=== PATIENT | male | born 1965 | race Caucasian/White ===

== ENCOUNTER 2017-05-04 06:51 | Inpatient (IN) | payer BC ==
--- NOTE | 2017-04-22 12:25 | HP ---
PREOPERATIVE HISTORY AND PHYSICAL: DATE OF ADMISSION: 05/04/17 This patient is scheduled for AA admission by Dr. Chilel on 05/04/17. DATE OF PREOPERATIVE HISTORY AND PHYSICAL EXAMINATION: 04/21/17 ATTENDING SURGEON: Juan Chilel MD (dictated by Jose Antonio Fernández NP). CHIEF COMPLAINT: Morbid obesity. HISTORY OF PRESENT ILLNESS: The patient is a 52-year-old morbidly obese male with a body mass index of 43 and comorbidities of aggressive coronary artery disease with a history of myocardial infarction x2 as well as coronary artery stenting; type 2 diabetes; hypertension; hyperlipidemia; and sleep apnea requiring CPAP. He has been in the bariatric program since 2011 and was seen in 2013 for laparoscopic sleeve gastrectomy, but the surgery was delayed because he had an OH. Currently, he has completed all of the necessary preoperative evaluations and diagnostic testing as well as medically supervised weight loss at [facility] and he has been cleared by Dr. Phelps from cardiology to proceed with surgery. He has been deemed an appropriate candidate by Dr. Chilel for laparoscopic sleeve gastrectomy. Dr. Chilel discussed the nature of the surgical procedure, the expected results of surgery, the relevant risks, benefits, and alternatives and today I have reviewed the typical hospitalization as well as the postoperative care and recovery. The patient understands the need for compliance with stages of the postoperative bariatric diet, vitamin and mineral supplementation, exercise and followup appointments. The patient has had a chance to ask questions and stated that he understands the information and is satisfied with the answers given to his questions. He will sign surgical consent on the day of surgery. PAST MEDICAL HISTORY: Significant for coronary artery disease with a history of myocardial infarction x2, in 2012 and 2013. Multiple coronary artery stenting procedures both at [facility] and [facility] with the last one being September 2015, type 2 diabetes, hypertension, hypercholesterolemia, sleep apnea with CPAP. PAST SURGICAL HISTORY: Limited to minor plastic surgery on his nose many years ago after a dog bite and multiple percutaneous transluminal coronary angioplasties. MEDICATIONS: 1. Chlorthalidone 25 mg p.o. daily. 2. Atorvastatin 80 mg p.o. daily. 3. Amlodipine 10 mg p.o. daily. 4. Lisinopril 20 mg p.o. daily. 5. Metoprolol 25 mg p.o. b.i.d. 6. Aspirin [address] Chilel stated that the patient could continue the aspirin in the perioperative period. 7. Brilinta 90 mg p.o. b.i.d. and the patient will hold the Brilinta for 5 days preoperatively and take the last dose on 04/28/17. 8. Metformin 1000 mg p.o. b.i.d. and I have advised the patient to hold that for 24 hours preoperatively and to check with his primary care provider about adjusting the dose during the preop diet. 9. Benadryl 25 mg p.o. at bedtime as needed. 10. Multivitamin daily. 11. CPAP for sleep apnea every night. 12. Nitrostat 0.4 mg one sublingual every 5 minutes up to 3 doses p.r.n. chest pain. ALLERGIES: No known drug allergies. REVIEW OF SYSTEMS: Constitutional: Denies any symptoms. Respiratory: Denies any shortness of breath or orthopnea. Cardiovascular: Denies any chest pain, palpitations, syncopal episodes. Denies any history of deep vein thrombosis or pulmonary embolism. He has aggressive coronary artery disease; April 2016 underwent chemical nuclear stress test, which showed normal perfusion. He has been cleared by Dr. Phelps from Cardiology to proceed with surgery. Please see the attached cardiology note dated 01/01/17. GI: Denies any nausea, vomiting, chronic constipation, or diarrhea; abdominal ultrasound revealed hepatic steatosis, no gallstones, gallbladder thickening or ductal dilatation; upper endoscopy in 2013 revealed a small hiatal hernia and a positive CLOtest for which he was treated. Genitourinary: Denies any dysuria, hematuria, or history of kidney stones. Musculoskeletal: Denies any chronic joint pain or back pain. Neurologic: Denies any complaints or conditions. He does have a history of sleep apnea and is using CPAP every night; he is a type 2 diabetic and does not check fingersticks; he denies any bleeding tendencies and has never received a blood transfusion. Denies any previous anesthesia complications. SOCIAL HISTORY: He is a registered nurse, employed at the [employer]; he lives with his girlfriend of 19 years; he quit chewing tobacco in 2011 and quit smoking cigarettes over 13 years ago; he rarely drinks alcohol and denies the use of other substances. FAMILY HISTORY: Mother alive at age 70 with hypertension and osteoporosis; father with heart disease; the patient has 1 brother with a history of myocardial infarction with stenting; the patient's sister at age 32 status post myocardial infarction. No known anesthesia complications, bleeding tendencies, or clotting disorders in the family. PHYSICAL EXAMINATION GENERAL: The patient is a 52-year-old morbidly obese male, in no acute distress. VITAL SIGNS: Height 68 inches, weight 283 pounds, body mass index 43, blood pressure 124/80, pulse 80 and regular, respiratory rate 18, temperature 98.4 tympanic. SKIN: Warm, dry, intact. No skin fold rashes. HEENT: Benign. NECK: Supple. No cervical lymphadenopathy. Carotids are 2+ without bruits. No thyromegaly. LUNGS: Breath sounds bilaterally clear and equal. HEART: Regular rate and rhythm. No murmurs, rubs, or gallops appreciated. BACK: No CVA tenderness. ABDOMEN: Active bowel sounds. Obese. Soft, nondistended, nontender throughout. No obvious masses, organomegaly, or evidence of ventral hernia, but exam is limited by body habitus. GENITALIA: Deferred. RECTAL: Deferred. EXTREMITIES: Without edema or skin ulcerations. NEUROLOGIC: Alert and oriented x3. Steady gait. IMPRESSION: 1. Morbid obesity. 2. Coronary artery disease, status post myocardial infarction and coronary artery stenting. 3. Hypertension. 4. Type 2 diabetes mellitus. 5. Hyperlipidemia. 6. Sleep apnea requiring CPAP. PLAN: AA admission to Dr. Chilel' service on 05/04/17, for a laparoscopic sleeve gastrectomy; the patient will hold Brilinta for [address] Chilel stated that the patient may continue his daily aspirin preoperatively. JOSE ANTONIO FERNÁNDEZ NP CC: Dr. Chilel; Dr. Owen Phelps; Mark Fournier NP * [id number]/[facility] #: [id number] [facility]ERSITY HOSPITALEdgardo
[~2017-05-04 06:51] MED LIST: Buffered Lidocaine 0.9% SYRIN* 5 ML/SYR SYRINGE INTRADERM ONE; Dexamethasone IV* 4 MG/ML 1 ML (4 MG) IV SLOW PU ONE; Famotidine IV* 10 MG/ML 2 ML (20 mg) IV ONE; Scopolamine 1.5 mg* PATCH TRANSDERM ONE
[2017-05-04] MEDS ORDERED: Dexamethasone IV* 4 MG/ML 1 ML (4 MG) ONE (07:10)
[2017-05-04] MEDS ORDERED: Buffered Lidocaine 0.9% SYRIN* 5 ML/SYR SYRINGE ONE (07:10)
[2017-05-04] MEDS ORDERED: Famotidine IV* 10 MG/ML 2 ML (20 mg) ONE (07:10)
[2017-05-04] MEDS ORDERED: Scopolamine 1.5 mg* PATCH ONE (07:10)
[2017-05-04] MEDS ORDERED: ceFAZolin 2 GM PREMIX(*) 2 GM/50 ML BAG IVPB SCH (07:11)
[2017-05-04] MEDS ORDERED: ceFAZolin 2 GM PREMIX(*) 2 GM/50 ML BAG IVPB ONE (07:11)
[2017-05-04] MEDS ORDERED: Clindamycin 900 MG IVPREMIX(* 900 MG/50 ML SDV IV ONE (07:11)
[2017-05-04] MEDS ORDERED: Heparin VIAL(*) 5000 UNITS/ML VIAL (FIVE THOUSAND) ONE (07:12)
[2017-05-04] MEDS ORDERED: Bupivacaine 0.5% W/EPI SDV* 30 ML VIAL ONE (07:59)
[2017-05-04] MEDS ORDERED: Propofol* 10 MG/ML 20 ML BTL IV PUSH ONE (08:02)
[2017-05-04] MEDS ORDERED: Succinylcholine* 20 MG/ML 10 ML VIAL ONE (08:02)
[2017-05-04] MEDS ORDERED: Lidocaine 2% PF * 5 ML VIAL ONE (08:02)
[2017-05-04] MEDS ORDERED: Midazolam* 1 MG/ML 5 ML VIAL (5 MG) ONE (08:04)
[2017-05-04] MEDS ORDERED: fentaNYL* 50 MCG/ML 5 ML VIAL (250 MCG VIAL) ONE (08:04)
[2017-05-04] MEDS ORDERED: Acetaminophen IV 1GM/100ML * 100 ML IVPB ONE (08:29)
[2017-05-04] MEDS ORDERED: PROCHLORPERAZINE INJ 5 MG/ML 2 ML VIAL IV PRN ×2 (08:29→16:40)
[2017-05-04] MEDS ORDERED: Rocuronium* 10 MG/ML VIAL ONE (09:19)
[2017-05-04] MEDS ORDERED: Ketorolac INJ* 30 MG/ML 1 ML VIAL ONE (09:20)
[2017-05-04] MEDS ORDERED: Ondansetron INJ* 2 MG/ML VIAL ONE ×2 (09:23→11:26)
[2017-05-04] MEDS ORDERED: EPHEDrine (Pressors)* 50 MG/ML VIAL ONE (09:42)
[2017-05-04] MEDS ORDERED: fentaNYL* 50 MCG/ML 2 ML VIAL (100 MCG VIAL) ONE ×2 (10:21→11:13)
[2017-05-04] MEDS ORDERED: Neostigmine Methylsulfate* 2 MG/2 ML SYRINGE ONE (10:30)
[2017-05-04] MEDS ORDERED: Glycopyrrolate IV* 0.2 MG/ML 1 ML VIAL ONE (10:30)
--- NOTE | 2017-05-04 10:51 | PN ---
Progress Note - Progress Note Note: Brief Operative Note: Pre- and Post-op Dx: morbid obesity Procedure: Laparoscopic Sleeve Gastrectomy Anesthesia: GET Surgeon: Ranjana Fluids: 2100 ml RL EBL: < 100 ml Drains: none Specimen: portion stomach Findings: dictated
[2017-05-04] MEDS ORDERED: PROCHLORPERAZINE INJ 5 MG/ML 2 ML VIAL ONE ×2 (11:13→12:08)
[2017-05-04] MEDS ORDERED: Acetaminophen IV 1GM/100ML * 100 ML ONE (11:14)
[2017-05-04] MEDS: fentaNYL* 50 MCG/ML 2 ML VIAL (100 MCG VIAL) IV PRN ×2 (11:15→11:29)
[2017-05-04] MEDS ORDERED: Nitroglycerin TAB 0.4 MG* 0.4 MG TAB SL PRN (11:17)
[2017-05-04] MEDS ORDERED: Dextrose 50% Syringe 50 ML* 25 GM/50 ML SYRINGE IV PUSH PRN (11:19)
[2017-05-04] MEDS ORDERED: Ondansetron INJ* 2 MG/ML VIAL IV ONE (11:30)
[2017-05-04] MEDS ORDERED: Morphine INJ* 4 MG/ML 1 ML SYRINGE ONE (11:58)
[2017-05-04] MEDS: Morphine INJ* 2 MG/ML 1 ML SYRINGE IV PRN ×2 (12:01→13:51)
[2017-05-04] MEDS ORDERED: PROCHLORPERAZINE INJ 5 MG/ML 2 ML VIAL IV ONE (12:11)
[2017-05-04] MEDS ORDERED: DiMENhydriNATE IV* 50 MG/ML VIAL ONE (12:25)
[2017-05-04] MEDS: DiMENhydriNATE IV* 50 MG/ML VIAL IV PUSH ONE ×2 (12:26→12:40)
[2017-05-04] MEDS ORDERED: HYDROmorphone* 1 MG/ML 1 ML SYR IV SLOW PU PRN (14:31)
[2017-05-04] MEDS: Insulin LISPRO* 1 UNITS UNIT SUBCUT SCH ×2 (15:03→18:06)
[2017-05-04] MEDS ORDERED: diPHENhydraMINE IV* 50 MG/ML 1 ml VIAL (BENADRYL) SLOW PUSH PRN (16:09)
[2017-05-04] MEDS ORDERED: Ondansetron INJ* 2 MG/ML VIAL IV PRN (16:09)
[2017-05-04] MEDS ORDERED: Acetaminophen ADULT LIQ* 650 MG/20.3 ML UDC PO PRN (16:09)
[2017-05-04] MEDS ORDERED: Metoclopramide IV* 5 MG/ML 2 ML VIAL IV PRN (16:34)
[2017-05-04] MEDS: Famotidine IV* 10 MG/ML 2 ML (20 mg) IV SCH (17:42)
[2017-05-04] MEDS: Ketorolac INJ* 15 MG/ML 1 ML VIAL IV PRN (19:52)
[2017-05-04] MEDS ORDERED: Metoprolol Tartrate TAB* 25 MG PO SCH (21:00)
[2017-05-04] MEDS: Metoprolol Tartrate IV* 1 MG/ML 5 ML VIAL IV SCH (22:18)
[2017-05-04] MEDS: Heparin VIAL(*) 5000 UNITS/ML VIAL (FIVE THOUSAND) SUBCUT SCH (22:18)
[2017-05-05] MEDS: Insulin LISPRO* 1 UNITS UNIT SUBCUT SCH ×4 (00:18→18:21)
[2017-05-05] MEDS: Ketorolac INJ* 15 MG/ML 1 ML VIAL IV PRN (02:10)
[2017-05-05] MEDS: Metoprolol Tartrate IV* 1 MG/ML 5 ML VIAL IV SCH ×4 (04:15→22:16)
[2017-05-05] MEDS: HYDROmorphone* 1 MG/ML 1 ML SYR IV PRN ×3 (04:51→22:20)
[2017-05-05] MEDS: Famotidine IV* 10 MG/ML 2 ML (20 mg) IV SCH ×2 (05:44→17:24)
[2017-05-05] MEDS: Heparin VIAL(*) 5000 UNITS/ML VIAL (FIVE THOUSAND) SUBCUT SCH ×3 (05:44→22:19)
--- NOTE | 2017-05-05 06:37 | OP ---
CC: Mark Fournier NP; Owen Phelps MD OPERATIVE REPORT: DATE OF OPERATION: 05/04/17 DATE OF : 65 SURGEON: Juan Chilel MD MOTORMAN/WOMAN: LETICIA Yanez ANESTHESIOLOGIST: Nicky Curtis MD ANESTHESIA: General endotracheal. PRE-OP DIAGNOSIS: Morbid obesity. POST-OP DIAGNOSIS: Morbid obesity. OPERATIVE PROCEDURE: Laparoscopic sleeve gastrectomy. ESTIMATED BLOOD LOSS: Less than 50 mL. IV FLUIDS: Crystalloids. SPECIMEN: Portion of the stomach. DRAINS: None. COMPLICATIONS: None. COUNTS: The instrument, needle, and sponge counts were correct. DESCRIPTION OF PROCEDURE: The patient was brought to the operating room and placed on the table sup ine. Sequential compression devices were placed on both lower extremities. General anesthesia was administered. He was positioned and padded appropriately and prepped and draped in the usual steril e fashion and he received appropriate intravenous antibiotics. After a time-out was performed, local anesthetic was infiltrated into the skin and soft tissue prior to making each incision. Entry to the abdomen was through a left upper quadrant incision accommoda ting a 5-mm optical trocar. After accessing the peritoneal cavity, carbon dioxide was insufflated t o a pressure of 15 mmHg. Under direct visualization, a 12-mm trocar was placed in the supraumbilica l midline, 15- mm trocar was placed in the right upper quadrant, and a 5-mm trocar in the left upper quadrant laterally and a Jose liver retractor was also placed percutaneously at the subxiphoid position to elevate the left lobe of the liver. There were some omental adhesions to the edge of th e left lobe of the liver, which was divided using LigaSure. The pylorus was identified and along the greater curvature 6 cm proximal to the pylorus, the gastroc olic ligament was divided with the LigaSure. The skeletonization of the greater curvature continued along the stomach proximally all the way to the gastroesophageal junction, dividing posterior short gastric vessels as well so that the fundus was fully mobile. Some adhesions of the lesser sac to t he pancreas were divided as well. These were avascular. After completely mobilizing the stomach, a sleeve gastrectomy was performed over a 40-Chinese bougie with a black cartridge with reinforcement on the antrum and purple cartridges with reinforcement along the body of the stomach all the way up to the area of the angle of His. After completing the division, staple line was inspected, noted to be intact, and hemostatic. The bougie was removed without difficulty. The transected portion of t he stomach was retrieved through the right upper quadrant incision using an endoscopic retrieval bag . This wound was then closed with 0 Polysorb in interrupted fashion to approximate the fascia and m uscle in one layer. The remaining ports were removed under direct visualization. Hemostasis was as sured. Carbon dioxide was released. Skin incisions were closed with coleen and dressings were appl ied. The patient tolerated the procedure well. He was extubated and transferred to the recovery ro in stable condition. [id number]/[facility] #: [id number]
--- NOTE | 2017-05-05 09:25 | PN ---
Progress Note - Progress Note SOAP: Subjective:POD#1 up walking,good pain control,using IS,no chest pain or dyspnea [] Objective:alert&oriented;lungs:clear bilat;heart:RRR:abd:hypoactive bs; incisions intact,no erythema;ext:nontender calves,no edema;large uo Vital Signs Temp 99.0 F 05/05/17 07:45 Pulse 78 05/05/17 07:45 Resp 16 05/05/17 08:20 BP 157/74 05/05/17 07:45 Pulse Ox 98 05/05/17 08:20 Intake & Output 17 05/05/17 05/05/17 18:59 06:59 18:59 Intake Total 2100 1890 Output Total 450 400 Balance 1650 1490 Weight 270 lb Intake: IV Fluids 2100 973 LR 2100 973 IVPB 917 LR 917 Oral 0 Output: Urine 450 400 Other: # Bowel Movements 0 [] Assessment:BP elevated overnight,IV Lopressor given;doing well,stable POD#1 s/p gastric bypass [] Plan:start saira clears;resume po meds as able;continue IV fluids;ambulate;IS; follow BP;likely discharge 05/06/17 []
[2017-05-05] MEDS: Ketorolac INJ* 30 MG/ML 1 ML VIAL IV PRN ×2 (09:41→19:22)
[2017-05-05] MEDS: Aspirin Low Dose CHEW TAB* 81 MG PO SCH (11:25)
[2017-05-05] MEDS: D5W 1/2 NS KCl 20 Meq 1000 ML* 1,000 ML IV SCH ×2 (11:30→22:14)
[2017-05-05] MEDS: HYDROcodone/ACET. 7.5/325 LIQ* 15 ML UDC PO PRN (13:55)
[2017-05-06] MEDS: Insulin LISPRO* 1 UNITS UNIT SUBCUT SCH ×2 (00:26→05:59)
[2017-05-06] MEDS: Ketorolac INJ* 30 MG/ML 1 ML VIAL IV PRN (02:00)
[2017-05-06] MEDS: HYDROcodone/ACET. 7.5/325 LIQ* 15 ML UDC PO PRN ×2 (03:10→09:40)
[2017-05-06] MEDS: Metoprolol Tartrate IV* 1 MG/ML 5 ML VIAL IV SCH ×2 (04:04→09:35)
[2017-05-06] MEDS: Heparin VIAL(*) 5000 UNITS/ML VIAL (FIVE THOUSAND) SUBCUT SCH (05:59)
[2017-05-06] MEDS: Famotidine IV* 10 MG/ML 2 ML (20 mg) IV SCH (05:59)
[2017-05-06 08:05] VITALS: BP 126/72
[2017-05-06] MEDS: D5W 1/2 NS KCl 20 Meq 1000 ML* 1,000 ML IV SCH (09:32)
[2017-05-06] MEDS: Aspirin Low Dose CHEW TAB* 81 MG PO SCH (09:39)
--- NOTE | 2017-05-06 11:40 | PN ---
Progress Note - Progress Note Note: S: POD #2. Seen ~ [address] Chilel. Doing well. Gricel saira clears. Pain controlled w/ po analgesics. O: Vital Signs - 8 hr 05/06/17 05/06/17 05/06/17 03:56 05:10 07:32 Temperature 98.7 F 98.3 F Pulse Rate 69 60 Respiratory 16 16 16 Rate Blood Pressure 132/70 126/72 (mmHg) O2 Sat by Pulse 99 98 Oximetry 05/06/17 05/06/17 08:00 09:40 Temperature Pulse Rate Respiratory 20 18 Rate Blood Pressure (mmHg) O2 Sat by Pulse Oximetry Intake and Output Last 24 Hours 05/04/17 05/05/17 05/06/17 05/07/17 06:59 06:59 06:59 06:59 Intake Total 4979 1720 1007 Output Total 850 1850 Balance 4129 -130 1007 Weight 270 lb Intake: IV Fluids 4062 383 D5W 1/2 NS 20 meq KCL 383 LR 4062 IVPB 195 455 8580 D5W 1/2 NS 20 meq KCL 617 1007 LR 917 Oral 0 720 Output: Urine 850 1850 Other: # Bowel Movements 0 Heart: reg Lungs: clear Abd: +BS; incisions w/o bleeding or signs of infection; mild to mod incisional tenderness A: doing well post sleeve gastrectomy P: home today (see dictated summary)
--- NOTE | 2017-05-06 22:22 | DS ---
CC: Iveth Baird MD, [facility] * DISCHARGE SUMMARY: DATE OF ADMISSION: 05/04/17 DATE OF DISCHARGE: 05/06/17 ATTENDING SURGEON: Juan Chilel MD (DICTATED BY LETICIA MCCOY) HOSPITAL COURSE: Please refer to admission history and physical for admission details. The patient was taken to the operating room on 05/04/17, where he underwent laparoscopic sleeve gastrectomy with Dr. Chilel. His postoperative course was characterized by significant nausea postoperatively, which required multiple medications, but eventually did resolve. He also was hypertensive, but responded well to IV metoprolol. He was able to be advanced in diet and was doing well as of the morning of postop day 2. Pain also was well controlled with oral analgesics. PHYSICAL EXAMINATION: As of the morning of discharge vital signs: Temperature 98.3, blood pressure 126/72, pulse 60, respiration 16, room air saturation 98%. Heart: Regular rate and rhythm. No murmur. Lungs: Clear to auscultation. Abdomen: Laparoscopic incision site is healing well. No evidence of active bleeding or signs of infection. Soft with incisional tenderness only. IMPRESSION: Status post laparoscopic sleeve gastrectomy, doing well. PLAN: Home today. He has a followup with Dr. Chilel on 05/13/17. His discharge medications will include his usual: 1. Metoprolol 25 mg b.i.d. 2. Aspirin 81 mg daily. 3. Brilinta 90 mg b.i.d. 4. Nitroglycerin 0.4 mg sublingual p.r.n. 5. Atorvastatin 80 mg daily. For the present time, he will hold his metformin, lisinopril, amlodipine, and chlorthalidone, but will monitor his blood pressures at home and contact us if there are any problems between now and his initial followup. LETICIA MCCOY [id number]/[facility] #: [id number] MTDD
[2017-05-07] MEDS ORDERED: Scopolomine PATCH Remove* 1 NOTE MISC PATCH OFF ONE (06:00)
== END 2017-05-06 12:25 | disposition home or self-care (01) | DRG 403 ==
LOC: AA 06:51 → SSU 15:19
PROVIDERS: ADMIT Surgery; ATTEND Surgery
PROC: 0DB64Z3 Excision of Stomach, Percutaneous Endoscopic Approach, Vertical (ICD-10-PCS; principal; 2017-05-04 08:30)
DX: E66.01 Morbid (severe) obesity due to excess calories (principal); I10 Essential (primary) hypertension; E78.5 Hyperlipidemia, unspecified; I25.10 Atherosclerotic heart disease of native coronary artery without angina pectoris; E11.9 Type 2 diabetes mellitus without complications; G47.33 Obstructive sleep apnea (adult) (pediatric); E78.00 Pure hypercholesterolemia, unspecified; K21.9 Gastro-esophageal reflux disease without esophagitis; R11.0 Nausea; Z68.41 Body mass index [BMI] 40.0-44.9, adult; I25.2 Old myocardial infarction; Z95.5 Presence of coronary angioplasty implant and graft; Z87.891 Personal history of nicotine dependence; Z82.49 Family history of ischemic heart disease and other diseases of the circulatory system; Z82.62 Family history of osteoporosis; Z79.82 Long term (current) use of aspirin; Z79.02 Long term (current) use of antithrombotics/antiplatelets
CPT/HCPCS: 88307; 94760; A9270-GY; J0330; J0690; J0780; J1100; J1170; J1240; J1644; J1885; J2250; J2270; J2405; J2704; J3010

== ENCOUNTER 2017-08-18 08:09 | Observation (INO) | payer BC ==
[2017-08-18] MEDS ORDERED: Aspirin Low Dose CHEW TAB* 81 MG PO ONE (08:16)
--- NOTE | 2017-08-18 09:09 | RAD ---
INDICATION: Chest pain COMPARISON: Chest x-ray dated April 21, 2017 TECHNIQUE: Single AP portable view of the chest was obtained. FINDINGS: Image quality is compromised due to the relative inferiority of a portable chest x-ray. The heart and mediastinum exhibit normal size and contour. The lungs are grossly clear. There is no evidence of a large pleural effusion. Visualized bones are normal for the patient's age. IMPRESSION: No radiographic evidence for acute cardiopulmonary abnormality on this portable chest x-ray.
[2017-08-18 09:11] LABS: Hematocrit 43 % (42-52); Hemoglobin 14.7 g/dl (14.0-18.0); Mean Corpuscular HGB Conc 34 g/dl (31-36); Mean Corpuscular Hemoglobin 30 pg (27-31); Mean Corpuscular Volume 86 fL (80-94); Mean Platelet Volume 8 um3 (7.4-10.4); Red Blood Count 4.98 10^6/ul (4.0-5.4); Red Cell Distribution Width 15 % (10.5-15); White Blood Count 5.6 10^3/ul (3.5-10.8)
[2017-08-18 09:22] LABS: Albumin 4.1 g/dL (3.2-5.2); BUN/Creatinine Ratio 13.9 (8-20); Calcium 9.3 mg/dL (8.6-10.3); EGFR African American 147.4 (>60); EGFR Non-African American 114.6 (>60); Globulin 2.4 g/dL (2-4); Magnesium 2.2 mg/dL (1.9-2.7); Potassium 4.1 mmol/L (3.5-5.0); Total Bilirubin 1.5 mg/dL (0.2-1.0); Total Protein 6.5 g/dL (6.4-8.9)
[2017-08-18 10:03] LABS: TSH (Thyroid Stimulating Horm) 2.32 mcIU/mL (0.34-5.60)
[2017-08-18] MEDS ORDERED: Ondansetron INJ* 2 MG/ML VIAL IV PRN (11:38)
--- NOTE | 2017-08-18 14:23 | HP ---
Amended report to enter cosigning doctor. HISTORY AND PHYSICAL: DATE OF ADMISSION: 08/18/17 PROVIDER: Baron Escalante MD* (H and P being dictated by Janis Otero NP). PRIMARY CARE PHYSICIAN: Iveth Baird MD. HEAD OF PRODUCT: Owen Phelps MD. CHIEF COMPLAINT: Chest pain. HISTORY OF PRESENT ILLNESS: Mr. Nick was woken this morning at about 2:30 with chest pain. He got up, went to the bathroom, went back to bed, dozed back off, awoke at 6:30, got up to shower, had recurrent chest pain that was substernal that did not go away. He took one nitroglycerin at 6:30, the chest pain seemed to get better and he proceeded to work. While at work he had chest pain again that came and went, sometimes stabbing pain and then it went down his left arm. He took another nitro which improved the chest pain, so at that time he presented to the emergency room for evaluation. He has a long history of cardiac disease. He is status post PCI x4. His first PCI was in November 2012, where he had an acute IL, and had 2 stents placed. He then presented on 05/19/14, with chest pain, had an acute IL, underwent PCI and found to have in- stent restenosis. In 2014, he went to [facility] where he had 2 stents placed to his LAD. In September 2015, he had a stent placed in the mid RCA. Dr. Phelps is his model photographers' and follows him. Patient states that since 2014, he had been doing well and he was even approved for gastric sleeve that was performed by Dr. Chilel, and Dr. Phelps cleared him for that surgery in April of this year. He has come to the emergency room twice this year with complaints of chest pain. He had a nuclear stress test that was negative at that time, so we will admit him and obtain serial troponins. His first troponin in the emergency room is 0, we are waiting for the second one. He will be observed overnight on telemetry and we will again order a stress test. He denied at that time of the dizziness, syncope, palpitations or shortness of breath or diaphoresis. PAST MEDICAL HISTORY: 1. Coronary artery disease he is status post PCI x4, first time in November 2012 , then 05/11/14 and again twice in 2014. 2. Hyperlipidemia. 3. Non-insulin dependent type 2 diabetes. 4. Hypertension. 5. Obesity. 6. Obstructive sleep apnea, on CPAP. 7. Fatty liver. PAST SURGICAL HISTORY: Multiple PCI's x4 and the gastric sleeve in April of this year. HOME MEDICATIONS: At this time he is on: 1. Brilinta 90 mg b.i.d. 2. Multivitamin 1 b.i.d. 3. Metoprolol 25 mg b.i.d. 4. Vitamin B12, 1000 mcg p.o. daily. 5. Vitamin D 1000 units p.o. daily. 6. Lipitor 80 mg p.o. q.p.m. 7. Aspirin 81 mg p.o. daily. ALLERGIES: The patient has no known allergies. FAMILY HISTORY: His sister in her 30s of an IL. Paternal grandfather of an IL in his 50s. His father in his 60s with an IL. His grandmother had coronary artery disease with stents, in her 90s. He also has a brother who recently had stents placed as well. SOCIAL HISTORY: Quit smoking approximately 3 years ago. Occasional alcohol use. He works as an RN at [employer]. He lives with his domestic female partner, Flora, who is his healthcare proxy. Her number is [phone], and he has no children. REVIEW OF SYSTEMS: He denies fatigue or weakness. Denies visual changes. Currently is chest pain free, but he said it does come and go. Denies shortness of breath or cough. No complaints with constipation or diarrhea. No hematuria or urgency. Denies muscle pain or joint pain. He has no rashes. Denies dizziness, anxiety or depression. He is not cold or hot intolerant and does not have unusual bleeding or bruising. PHYSICAL EXAMINATION GENERAL: He is alert and oriented x3. Very pleasant, interactive, sitting in the emergency room on a stretcher in no acute distress. He is appropriate to situation. VITAL SIGNS: At this time, his heart rate is 53, respiratory rate 16, O2 sat 98 % on room air, blood pressure 174/81. His temperature on arrival to the emergency room was 98.5. HEENT: Head is normocephalic, atraumatic. Pupils are equal and reactive to light. Good dentition. Moist mucous membranes. NECK: Supple. No cervical or supraclavicular lymphadenopathy. No elevated JVD. RESPIRATORY: Lungs are clear to auscultation bilaterally. Good aeration throughout. CARDIAC: S1, S2. No murmurs, rubs or gallops. No lower extremity edema. 2+ DP pulses bilaterally. ABDOMEN: Obese, soft, nontender, nondistended. Normal bowel sounds x4. MUSCULOSKELETAL: Strength is 5/5 throughout. Full range of motion all extremities. No clubbing or cyanosis. NEURO: Cranial nerves II through XII are intact. Moves all extremities equally and easily. No facial droop noted. Tongue is midline. Sensation in lower extremities is intact to light touch. SKIN: No rashes, lesions or open wounds are noted. PSYCH: He is alert and oriented x3. Appropriate to situation and very pleasant. LABORATORY DATA AND DIAGNOSTIC STUDIES: White count 5.6, H and H 14.7 and 43, platelet count 162,000. Chemistry: Sodium is 140, potassium 4.1, chloride 106 , carbon dioxide 27, BUN and creatinine 10 and 0.72. Glucose is 99, lactic acid 0.7. Total bilirubin 1.5, AST 25, ALT 31, BNP 31. His troponin is 0. TSH is 2.32. Reports: Chest x-ray on arrival to the emergency room, the impression: No radiographic evidence for acute cardiopulmonary abnormality on this portable chest x-ray. He had an electrocardiogram completed; sinus rhythm, old infarct. ASSESSMENT AND PLAN: Mr. Nick is a 52-year-old male, with a past medical history of coronary artery disease, status post PCI x4, with a history of multiple acute myocardial infarctions and in-stent restenosis, obesity, non- insulin dependent type 2 diabetes, now not needing treatment after his gastric sleeve, hypertension, hyperlipidemia, obstructive sleep apnea, who presents to the emergency department today with a report of chest pain starting around 2:30 in the morning. He went back to bed, slept, woke up at 6:30, the pain had returned. He took a sublingual nitro and felt that it resolved, went to work and had recurrent chest pain, took another nitro with some decrease in his symptoms, so he presented to the emergency room for evaluation. 1. Chest pain, rule out acute coronary syndrome. The patient will be admitted to observation on telemetry. Initial troponin was 0, there is one pending at this time. EKG shows no changes. We will continue to trend troponin and EKG' s. Continue his home aspirin, statin, beta-karl and Brilinta. 2. Hypertension. Continue home metoprolol. He is mildly hypertensive at this time and we will continue to monitor. 3. Non-insulin dependent type 2 diabetes. He is no longer requiring medications or fingersticks regarding he has had a 60-pound weight loss with improvement in his glucoses. 4. Obstructive sleep apnea. We will order his CPAP. 5. DVT prophylaxis. He is on Brilinta and we will order SCD's and he is up independently in his room. 6. Code status. He is a full code. The patient's domestic female partner, Flora, is his healthcare proxy. TIME SPENT: Approximately 60 minutes were spent on this admission. The case was reviewed with Dr. Escalante who agrees with the plan of care. JANIS OTERO, FILM TESTS CHECKER [id number]/[facility] #: [id number] [facility]
[2017-08-18] MEDS ORDERED: Influenza VAC *QUAD* 2017-18* 0.5 ML SYRINGE IM ONE (15:00)
[2017-08-18 16:38] LABS: Urine Bilirubin Negative (Negative); Urine Glucose Negative (Negative); Urine Nitrite Negative (Negative)
[2017-08-18] MEDS ORDERED: Atorvastatin* 20 MG TAB PO SCH (18:00)
[2017-08-18] MEDS ORDERED: Atorvastatin* 80 MG TAB PO SCH (18:00)
--- NOTE | 2017-08-18 18:15 | ED ---
Deloris Patel Thomas, scribed for Petros Sevilla MD on 08/18/17 at 0929 . HPI Chest Pain - HPI Summary HPI Summary: The pt is a 52 y/o M presenting to the ED c/o L-sided CP that began this AM at 02:30. He has a Hx of coronary stents and catheterizations. The pain is rated 5/ 10. The pain is aggravated by nothing. The patient has treated the pain with NTG SL x3, which alleviates pain for some time before it returns. Pt additionally c/o nausea. Pt denies SOB and vomiting. - History of Current Complaint Chief Complaint: EDChestPainROMI Time Seen by Provider: 08/18/17 08:16 Hx Obtained From: Patient Onset/Duration: Started Hours Ago - onset today at 02:30, Still Present Timing: Constant Current Severity: Moderate Pain Intensity: 5 Pain Scale Used: 0-10 Numeric Chest Pain Location: Discrete at: - L-sided Aggravating Factor(s): Nothing Alleviating Factor(s): NTG 123 - x3 for some time, but pain returns Associated Signs and Symptoms: Positive: Nausea. Negative: Shortness of Breath , Vomiting - Additional Pertinent History Primary Care Physician: [id number] - Allergy/Home Medications Allergies/Adverse Reactions: Allergies Allergy/AdvReac Type Severity Reaction Status Date / Time No Known Allergies Allergy Verified 05/04/17 07:28 Home Medications: Home Medications Cholecalciferol TAB* [Vitamin D TAB*] 1,000 unit PO DAILY 08/18/17 [History Confirmed 08/18/17] Cyanocobalamin TAB* [Vitamin B12 TAB*] 1,000 mcg PO DAILY 08/18/17 [History Confirmed 08/18/17] Multivitamins/Minerals TAB* [Theragran/minerals TAB*] 1 tab PO BID 08/18/17 [ History Confirmed 08/18/17] PMH/Surg Hx/FS Hx/Imm Hx Previously Healthy: No Endocrine/Hematology History: Reports: Hx Anticoagulant Therapy, Hx Diabetes, Hx Anemia Denies: Hx Blood Disorders, Hx Blood Transfusions, Hx Bone Marrow Disease, Hx Systemic Lupus Erythematosus, Hx Sickle Cell Disease, Hx Thyroid Disease, Hx Unexplained Bleeding, Other Endocrine/Hematological Disorders Cardiovascular History: Reports: Hx Angina, Hx Coronary Artery Disease, Hx Hypercholesterolemia, Hx Hypertension, Hx Myocardial Infarction Denies: Hx Aneurysm, Hx Angioplasty, Hx Cardiac Arrest, Hx Cardiomegaly, Hx Congenital Heart Disease, Hx Congestive Heart Failure, Hx Deep Vein Thrombosis, Hx Embolism, Hx Hypotension, Hx Pacemaker/ICD, Hx Peripheral Vascular Disease, Hx Rheumatic Fever, Hx Valvular Heart Disease, Other Cardiovascular Problems/ Disorders Respiratory History: Reports: Hx Seasonal Allergies, Hx Sleep Apnea - CPAP at bedside Denies: Hx Asthma, Hx Chronic Bronchitis, Hx Chronic Obstructive Pulmonary Disease (COPD), Hx Cystic Fibrosis, Hx Lung Cancer, Hx Pleural Effusion, Hx Pneumonia, Hx Pulmonary Edema, Hx Pulmonary Embolism, Other Respiratory Problems /Disorders GI History: Reports: Hx Hiatal Hernia Denies: Hx Cirrhosis, Hx Crohn's Disease, Hx Diverticulosis, Hx Gall Bladder Disease, Hx Gastroesophageal Reflux Disease, Hx Gastrointestinal Bleed, Hx Irritable Bowel, Hx Jaundice, Hx Obstructive Bowel, Hx Ileostomy, Hx Pyloric Stenosis, Hx Ulcer, Other GI Disorders History: Denies: Hx Acute Renal Failure, Hx Benign Prostatic Hyperplasia, Hx Chronic Renal Failure, Hx Dialysis, Hx Kidney Infection, Hx Kidney Stones, Other Problems/Disorders Musculoskeletal History: Reports: Other Musculoskeletal History - golf injury to right foot SCIATICA Denies: Hx Arthritis, Hx Back Problems, Hx Bursitis, Hx Congenital Bone Abnormalities, Hx Fibromyalgia, Hx Gout, Hx Orthopedic Injury, Hx Osteoporosis, Hx Scoliosis, Hx Tendonitis Sensory History: Reports: Hx Contacts or Glasses Denies: Hx Cataracts, Hx Eye Injury, Hx Eye Prosthesis, Hx Glaucoma, Hx Legally Blind, Hx Macular Degeneration, Hx Vision Problem, Hx Deafness, Hx Hearing Aid, Hx Hearing Problem, Other Sensory Impairments Opthamlomology History: Reports: Hx Contacts or Glasses Denies: Hx Cataracts, Hx Eye Injury, Hx Eye Prosthesis, Hx Glaucoma, Hx Legally Blind, Hx Macular Degeneration, Hx Vision Problem, Other Sensory Impairments Neurological History: Denies: Other Neuro Impairments/Disorders Psychiatric History: Denies: Other Psychiatric Issues/Disorders - Surgical History Surgery Procedure, Year, and Place: cardiac stents 11/2012 Hx Anesthesia Reactions: No Infectious Disease History: No Infectious Disease History: Denies: Hx Clostridium Difficile, Hx Hepatitis, Hx Human Immunodeficiency Virus (HIV), Hx of Known/Suspected MRSA, Hx Shingles, Hx Tuberculosis, Hx Known/ Suspected VRE, Hx Known/Suspected VRSA, History Other Infectious Disease, Traveled Outside the [place] in Last 30 Days - Family History Known Family History: Positive: Cardiac Disease - [place] - Social History Alcohol Use: Rare Alcohol Amount: 6 pack on weekends Hx Substance Use: No Substance Use Type: Reports: None Hx Tobacco Use: Yes Smoking Status (MU): Former Smoker Type: Cigarettes Amount Used/How Often: chewed Have You Smoked in the Last Year: No Review of Systems Negative: Fever Positive: Chest Pain - onset today at 02:30 Negative: Shortness Of Breath Positive: Nausea. Negative: Vomiting All Other Systems Reviewed And Are Negative: Yes Physical Exam - Summary Physical Exam Summary: VITAL SIGNS: Reviewed. GENERAL: ~Patient is a well-developed and nourished male who is lying comfortable in the stretcher. ~Patient is not in any acute respiratory distress. HEAD AND FACE: No signs of trauma. ~No ecchymosis, hematomas or skull depressions. No sinus tenderness. EYES: PERRLA, EOMI x 2, No injected conjunctiva, no nystagmus. EARS: Hearing grossly intact. Ear canals and tympanic membranes are within normal limits. MOUTH: Oropharynx within normal limits. NECK: Supple, trachea is midline, no adenopathy, no JVD, no carotid bruit, no c- spine tenderness, neck with full ROM. CHEST: Symmetric, no tenderness at palpation LUNGS: Clear to auscultation bilaterally. No wheezing or crackles. CVS: Regular rate and rhythm, S1 and S2 present, no murmurs or gallops appreciated. ABDOMEN: Soft, non-tender. No signs of distention. No rebound no guarding, and no masses palpated. Bowel sounds are normal. EXTREMITIES: FROM in all major joints, no edema, no cyanosis or clubbing. NEURO: Alert and oriented x 3. No acute neurological deficits. Speech is normal and follows commands. SKIN: Dry and warm Triage Information Reviewed: Yes Vital Signs On Initial Exam: Initial Vitals Temp Pulse Resp BP Pulse Ox 98.5 F 68 17 207/93 98 08/18/17 08:13 08/18/17 08:13 08/18/17 08:13 08/18/17 08:13 08/18/17 08:13 Vital Signs Reviewed: Yes Diagnostics - Vital Signs Vital Signs Temp Pulse Resp BP Pulse Ox 08/18/17 08:13 98.5 F 68 17 207/93 98 - Laboratory Lab Results: Lab Results 08/18/17 08/18/17 08/18/17 Range/Units 08:45 08:45 08:45 WBC 5.6 (3.5-10.8) 10^3/ul RBC 4.98 (4.0-5.4) 10^6/ul Hgb 14.7 (14.0-18.0) g/dl Hct 43 (42-52) % MCV 86 (80-94) fL MCH 30 (27-31) pg MCHC 34 (31-36) g/dl RDW 15 (10.5-15) % Plt Count 162 (150-450) 10^3/ul MPV 8 (7.4-10.4) um3 Neut % (Auto) 61.4 (38-83) % Lymph % (Auto) 28.3 (25-47) % Titus % (Auto) 6.8 (1-9) % Eos % (Auto) 3.0 (0-6) % Baso % (Auto) 0.5 (0-2) % Absolute Neuts (auto) 3.4 (1.5-7.7) 10^3/ul Absolute Lymphs (auto) 1.6 (1.0-4.8) 10^3/ul Absolute Monos (auto) 0.4 (0-0.8) 10^3/ul Absolute Eos (auto) 0.2 (0-0.6) 10^3/ul Absolute Basos (auto) 0 (0-0.2) 10^3/ul Absolute Nucleated RBC 0.01 10^3/ul Nucleated RBC % 0.1 Sodium 140 (133-145) mmol/L Potassium 4.1 (3.5-5.0) mmol/L Chloride 106 (101-111) mmol/L Carbon Dioxide 27 (22-32) mmol/L Anion Gap 7 (2-11) mmol/L BUN 10 (6-24) mg/dL Creatinine 0.72 (0.67-1.17) mg/dL Est GFR ( Amer) 147.4 (>60) Est GFR (Non-Af Amer) 114.6 (>60) BUN/Creatinine Ratio 13.9 (8-20) Glucose 99 (70-100) mg/dL Lactic Acid (0.5-2.0) mmol/L Calcium 9.3 (8.6-10.3) mg/dL Magnesium 2.2 (1.9-2.7) mg/dL Total Bilirubin 1.50 H (0.2-1.0) mg/dL AST 25 (13-39) U/L ALT 31 (7-52) U/L Alkaline Phosphatase 64 (34-104) U/L Total Creatine Kinase 57 (10-223) U/L CK-MB (CK-2) Pending Myoglobin 17.7 (17.4-105.7) ng/mL Troponin I 0.00 (<0.04) ng/mL B-Natriuretic Peptide 31 ( - 100) pg/mL Total Protein 6.5 (6.4-8.9) g/dL Albumin 4.1 (3.2-5.2) g/dL Globulin 2.4 (2-4) g/dL Albumin/Globulin Ratio 1.7 (1-3) TSH Pending 08/18/17 Range/Units 08:45 WBC (3.5-10.8) 10^3/ul RBC (4.0-5.4) 10^6/ul Hgb (14.0-18.0) g/dl Hct (42-52) % MCV (80-94) fL MCH (27-31) pg MCHC (31-36) g/dl RDW (10.5-15) % Plt Count (150-450) 10^3/ul MPV (7.4-10.4) um3 Neut % (Auto) (38-83) % Lymph % (Auto) (25-47) % Titus % (Auto) (1-9) % Eos % (Auto) (0-6) % Baso % (Auto) (0-2) % Absolute Neuts (auto) (1.5-7.7) 10^3/ul Absolute Lymphs (auto) (1.0-4.8) 10^3/ul Absolute Monos (auto) (0-0.8) 10^3/ul Absolute Eos (auto) (0-0.6) 10^3/ul Absolute Basos (auto) (0-0.2) 10^3/ul Absolute Nucleated RBC 10^3/ul Nucleated RBC % Sodium (133-145) mmol/L Potassium (3.5-5.0) mmol/L Chloride (101-111) mmol/L Carbon Dioxide (22-32) mmol/L Anion Gap (2-11) mmol/L BUN (6-24) mg/dL Creatinine (0.67-1.17) mg/dL Est GFR ( Amer) (>60) Est GFR (Non-Af Amer) (>60) BUN/Creatinine Ratio (8-20) Glucose (70-100) mg/dL Lactic Acid 0.7 (0.5-2.0) mmol/L Calcium (8.6-10.3) mg/dL Magnesium (1.9-2.7) mg/dL Total Bilirubin (0.2-1.0) mg/dL AST (13-39) U/L ALT (7-52) U/L Alkaline Phosphatase (34-104) U/L Total Creatine Kinase (10-223) U/L CK-MB (CK-2) Myoglobin (17.4-105.7) ng/mL Troponin I (<0.04) ng/mL B-Natriuretic Peptide ( - 100) pg/mL Total Protein (6.4-8.9) g/dL Albumin (3.2-5.2) g/dL Globulin (2-4) g/dL Albumin/Globulin Ratio (1-3) TSH Result Diagrams: 08/18/17 08:45 08/18/17 08:45 Lab Statement: Any lab studies that have been ordered have been reviewed, and results considered in the medical decision making process. - Radiology CXR Xray Interpretation: No Acute Changes - CXR shows No radiographic evidence for acute cardiopulmonary abnormality on this portable chest x-ray. ED physician has read this report and agrees. Radiology Interpretation Completed By: Radiologist - EKG 08:20 Cardiac Rate: NL - 61 BPM EKG Interpretation: Sinus rhythm. No ST elevations. Chest Pain Course/Dx - Course Assessment/Plan: The pt is a 52 y/o M presenting to the ED c/o L-sided CP that began this AM at 02:30. He has a Hx of coronary stents and catheterizations. The pain is rated 5/10. The pain is aggravated by nothing. The patient has treated the pain with NTG SL x3, which alleviates pain for some time before it returns. Pt additionally c/o nausea. Pt denies SOB and vomiting. Test results are without significant abnormality. Troponin #1 is negative. CXR is negative. However, the patient has comorbidities for ACS and the patients chest pain was relieved by NTG. Therefore, I discussed the case with Dr. Escalante who accepts the patient for admission. The patient is hemodynamically stable and alert and oriented x3. - Chest Pain Differential Diagnosis/HQI/PQRI: Acute [place], ACS, Angina, CHF, Chest Wall, GI Disease, Lower Respiratory Infection - Diagnoses Provider Diagnoses: Chest pain rule out ACS - Provider Notifications Discussed Care Of Patient With: Santiago Escalante Time Discussed With Above Provider: 09:42 Instructed by Provider To: Other - I consulted with Dr. Escalante, hospitalist, who will admit the patient. Discharge - Discharge Plan Condition: Fair Disposition: ADMITTED TO [facility] Discharge Disposition Comment: By Dr. Escalante The documentation as recorded by the Deloris golden Thomas accurately reflects the service I personally performed and the decisions made by me, Petros Sevilla MD.
[2017-08-18] MEDS: Nitroglycerin TAB 0.4 MG* 0.4 MG TAB SL PRN (18:22)
[2017-08-18] MEDS: Multivitamins/Minerals TAB PO SCH (22:45)
[2017-08-18] MEDS: Metoprolol Tartrate TAB* 25 MG PO SCH (22:45)
[2017-08-18] MEDS: Ticagrelor* 90 MG TAB PO SCH (22:45)
[2017-08-19] MEDS: Nitroglycerin TAB 0.4 MG* 0.4 MG TAB SL PRN (04:43)
[2017-08-19] MEDS ORDERED: Aspirin Low Dose CHEW TAB* 81 MG PO SCH (09:00)
[2017-08-19] MEDS ORDERED: Pneumococcal *Vac Polyvalent 0.5 ML VIAL IM ONE (09:00)
[2017-08-19] MEDS ORDERED: Cholecalciferol TAB* 1000 UNITS PO SCH (09:00)
[2017-08-19] MEDS ORDERED: Cyanocobalamin TAB* 500 MCG PO SCH (09:00)
[2017-08-19] MEDS ORDERED: Influenza VAC *QUAD* 2017-18* 0.5 ML SYRINGE IM ONE (09:00)
[2017-08-19] MEDS ORDERED: Regadenoson* 0.4 MG/5 ML SYRINGE ONE (10:28)
[2017-08-19] MEDS: Metoprolol Tartrate TAB* 25 MG PO SCH (11:03)
[2017-08-19] MEDS: Ticagrelor* 90 MG TAB PO SCH (11:03)
[2017-08-19] MEDS: Multivitamins/Minerals TAB PO SCH (11:03)
--- NOTE | 2017-08-19 11:20 | RAD ---
Edited for charges. Indication: History of multiple myocardial infarction. Myocardial perfusion scan was performed utilizing 1 day protocol. Rest myocardial perfusion was performed after intravenous injection of 10.8 mCi of technetium 99 and tetrofosmin. Pharmacological stress was applied and 25.6 mCi of technetium 99m tetrofosmin was then injected for the stress portion of study. There is homogeneous distribution of the radiotracer throughout the left ventricle. Photopenia in the inferior wall is noted both on the rest and stress images which appears to correct on the attenuation corrected images. This likely represents diaphragmatic attenuation. There is some apical thinning which appears to reverse on the rest images. The ejection fraction at stress is 59%. Evaluation of wall motion demonstrates no focal wall motion abnormality. IMPRESSION: There may be a small area of reversible change at the apex with apical thinning. Photopenia in the inferior wall appears to correct on the attenuation corrected images and likely represents diaphragmatic attenuation. Normal ejection fraction. ASSESSMENT: Low risk Based on imaging criteria from ACC/AHA 2002 Guideline Update for the Management of Patients With Chronic Stable Angina Table 23. Noninvasive Risk Stratification. Reference. MTDD
[2017-08-19 11:42] VITALS: BP 184/89
[2017-08-19] MEDS ORDERED: Lisinopril TAB* 5 MG PO SCH (13:00)
--- NOTE | 2017-08-20 01:02 | DS ---
CC: Dr. Baird; Dr. Phelps* DISCHARGE SUMMARY: DATE OF ADMISSION: 08/18/17 DATE OF DISCHARGE: 08/19/17 HOSPITAL COURSE: This 52-year-old man presented with chest pain and woke him out of sleep. He took a nitroglycerin. The pain went away. He went to work and the chest pain came back. He had a funny feeling in his left arm as well, took another nitroglycerin with some improvement. He decided to come to the emergency room for evaluation. He has a long cardiac history, which is detailed in the admission note. The patient was admitted to the telemetry unit. He had 3 troponin levels all of which were within normal limits. He had no significant arrhythmias. On the day of discharge, he had a nuclear stress test, this showed an ejection fraction at stress of 59%. There were no wall motion abnormalities. There was a question of a small area of reversible change at the apex with apical thinning. It was noted that there was photopenia, inferior wall, which corrected on the attenuation corrected images. There was some apical thinning, which appeared to be worse on the rest images. Based on the clinical evidence, I feel that the patient's pain was likely noncardiac or may have represented a minor area of ischemia with very little at risk. I note the patient does exercise, lifting weights and never has trouble with chest pain while weightlifting. This would argue significantly against his recent pain being cardiac in origin. The patient will follow up with Dr. Phelps for further Cardiology evaluation and guidance. The patient's blood pressure was significantly elevated throughout his hospital stay. I note that after his bariatric surgery, he was told to stop his amlodipine and lisinopril, which he did. He had been on lisinopril 20 mg daily as well as his dose of amlodipine. I am restarting him on 5 mg of lisinopril daily. He will get his first dose in the hospital and a prescription will be sent in. DISCHARGE DIAGNOSES: 1. Chest pain, atypical with negative stress test. 2. Hyperlipidemia. 3. Diabetes. 4. Hypertension. 5. Obesity. 6. Obstructive sleep apnea. 7. Fatty liver. DISCHARGE MEDICATIONS: 1. Lisinopril 5 mg daily. 2. Nitroglycerin 0.4 mg sublingual every 5 minutes p.r.n. 3. Atorvastatin 80 mg h.s. 4. Metoprolol 25 mg b.i.d. 5. Aspirin 81 mg daily. 6. Ticagrelor 90 mg b.i.d. 7. Multivitamin b.i.d. 8. Cyanocobalamin 1000 mcg daily. 9. Vitamin D3 1000 units daily. [id number]/[facility] #: [id number] MTDD
== END 2017-08-19 13:48 | disposition home or self-care (01) ==
LOC: ED 08:09 → MEDTELE 11:25
PROVIDERS: ADMIT Internal Medicine; ATTEND Internal Medicine
DX: R07.9 Chest pain, unspecified (principal); E78.5 Hyperlipidemia, unspecified; E11.9 Type 2 diabetes mellitus without complications; I10 Essential (primary) hypertension; G47.33 Obstructive sleep apnea (adult) (pediatric); E66.9 Obesity, unspecified; K76.0 Fatty (change of) liver, not elsewhere classified; R94.31 Abnormal electrocardiogram [ECG] [EKG]; Z79.82 Long term (current) use of aspirin; Z79.899 Other long term (current) drug therapy; Z23 Encounter for immunization; Z87.891 Personal history of nicotine dependence; Z79.01 Long term (current) use of anticoagulants
CPT/HCPCS: 36415; 71010; 78452; 80053; 81003; 82550; 82553; 83605; 83735; 83874; 83880; 84443; 84484; 85025; 85730; 90471; 90472; 90686; 90732; 93005; 93017; 99284; A9270-GY; A9502; G0008; G0009; G0378; J2785

== ENCOUNTER 2017-08-28 21:55 | Emergency (ER) | payer BC ==
[2017-08-28] MEDS ORDERED: Tetan/Diph/Pertus SYR(Tdap)* 0.5 ML SYR(BOOSTRIX) use SYR IM ONE (23:12)
[2017-08-28 23:33] LABS: Hematocrit 48 % (42-52); Hemoglobin 16.4 g/dl (14.0-18.0); Mean Corpuscular HGB Conc 34 g/dl (31-36); Mean Corpuscular Hemoglobin 29 pg (27-31); Mean Corpuscular Volume 86 fL (80-94); Mean Platelet Volume 8 um3 (7.4-10.4); Red Blood Count 5.57 10^6/ul (4.0-5.4); Red Cell Distribution Width 15 % (10.5-15); White Blood Count 9.9 10^3/ul (3.5-10.8)
[2017-08-28 23:36] LABS: Urine Bilirubin Negative (Negative); Urine Glucose Negative (Negative); Urine Nitrite Negative (Negative)
[2017-08-28 23:50] LABS: Albumin 4.6 g/dL (3.2-5.2); BUN/Creatinine Ratio 15.2 (8-20); Calcium 9.3 mg/dL (8.6-10.3); EGFR African American 132.5 (>60); Globulin 2.7 g/dL (2-4); Potassium 3.6 mmol/L (3.5-5.0); Total Bilirubin 1.5 mg/dL (0.2-1.0); Total Protein 7.3 g/dL (6.4-8.9)
[2017-08-29] MEDS ORDERED: ceFAZolin 2 GM PREMIX (*) 2 GM/50 ML BAG IVPB ONE (00:07)
--- NOTE | 2017-08-29 00:39 | ED ---
Patricia Patel Rebecca, scribed for Ronan Mastersonuel on 08/28/17 at 2354 . Adult Trauma - HPI Summary HPI Summary: Pt is a 52 y/o M who presents to ED s/p mechanical fall. Tonight, the pt was at a wedding outpatient receptionist and the line to the bathroom was long, so he went to urinate outside in a field. Pt then states he then just fell. Positive LOC. He currently c/o neck pain and CUMMINS. Associated pain is currently severe, ranked 9 /10. Sx aggravated and alleviated by nothing. Denies CP and back pain. Unsure if Tetanus is UTD. Confirms EtOH consumption today, denies any other drug use. Pt is on Brilinta 90 mg BID which he has been taking for multiple years. PSHx cardiac stents. - History of Current Complaint Chief Complaint: EDFacialInjury Stated Complaint: FACIAL TRAUMA Time Seen by Provider: 08/28/17 22:10 Hx Obtained From: Patient Mechanism of Injury: Fall Onset/Duration: Still Present Current Severity: Severe Pain Intensity: 9 Pain Scale Used: 0-10 Numeric Location: Head, Neck Aggravating Factor(s): Nothing Alleviating Factor(s): Nothing Associated Signs & Symptoms: Positive: Loss of Consciousness. Negative: Chest Pain - Additional Pertinent History Primary Care Physician: [id number] - Allergy/Home Medications Allergies/Adverse Reactions: Allergies Allergy/AdvReac Type Severity Reaction Status Date / Time No Known Allergies Allergy Verified 05/04/17 07:28 PMH/Surg Hx/FS Hx/Imm Hx Endocrine/Hematology History: Reports: Hx Anticoagulant Therapy, Hx Diabetes, Hx Anemia Denies: Hx Blood Disorders, Hx Blood Transfusions, Hx Bone Marrow Disease, Hx Systemic Lupus Erythematosus, Hx Sickle Cell Disease, Hx Thyroid Disease, Hx Unexplained Bleeding, Other Endocrine/Hematological Disorders Cardiovascular History: Reports: Hx Angina, Hx Coronary Artery Disease, Hx Hypercholesterolemia, Hx Hypertension, Hx Myocardial Infarction Denies: Hx Aneurysm, Hx Angioplasty, Hx Cardiac Arrest, Hx Cardiomegaly, Hx Congenital Heart Disease, Hx Congestive Heart Failure, Hx Deep Vein Thrombosis, Hx Embolism, Hx Hypotension, Hx Pacemaker/ICD, Hx Peripheral Vascular Disease, Hx Rheumatic Fever, Hx Valvular Heart Disease, Other Cardiovascular Problems/ Disorders Respiratory History: Reports: Hx Seasonal Allergies, Hx Sleep Apnea - CPAP at bedside Denies: Hx Asthma, Hx Chronic Bronchitis, Hx Chronic Obstructive Pulmonary Disease (COPD), Hx Cystic Fibrosis, Hx Lung Cancer, Hx Pleural Effusion, Hx Pneumonia, Hx Pulmonary Edema, Hx Pulmonary Embolism, Other Respiratory Problems /Disorders GI History: Reports: Hx Hiatal Hernia Denies: Hx Cirrhosis, Hx Crohn's Disease, Hx Diverticulosis, Hx Gall Bladder Disease, Hx Gastroesophageal Reflux Disease, Hx Gastrointestinal Bleed, Hx Irritable Bowel, Hx Jaundice, Hx Obstructive Bowel, Hx Ileostomy, Hx Pyloric Stenosis, Hx Ulcer, Other GI Disorders History: Denies: Hx Acute Renal Failure, Hx Benign Prostatic Hyperplasia, Hx Chronic Renal Failure, Hx Dialysis, Hx Kidney Infection, Hx Kidney Stones, Other Problems/Disorders Musculoskeletal History: Reports: Other Musculoskeletal History - golf injury to right foot SCIATICA Denies: Hx Arthritis, Hx Back Problems, Hx Bursitis, Hx Congenital Bone Abnormalities, Hx Fibromyalgia, Hx Gout, Hx Orthopedic Injury, Hx Osteoporosis, Hx Scoliosis, Hx Tendonitis Sensory History: Reports: Hx Contacts or Glasses Denies: Hx Cataracts, Hx Eye Injury, Hx Eye Prosthesis, Hx Glaucoma, Hx Legally Blind, Hx Macular Degeneration, Hx Vision Problem, Hx Deafness, Hx Hearing Aid, Hx Hearing Problem, Other Sensory Impairments Opthamlomology History: Reports: Hx Contacts or Glasses Denies: Hx Cataracts, Hx Eye Injury, Hx Eye Prosthesis, Hx Glaucoma, Hx Legally Blind, Hx Macular Degeneration, Hx Vision Problem, Other Sensory Impairments Neurological History: Denies: Other Neuro Impairments/Disorders Psychiatric History: Denies: Other Psychiatric Issues/Disorders - Surgical History Surgery Procedure, Year, and Place: cardiac stents 11/2012 Hx Anesthesia Reactions: No Infectious Disease History: No Infectious Disease History: Denies: Hx Clostridium Difficile, Hx Hepatitis, Hx Human Immunodeficiency Virus (HIV), Hx of Known/Suspected MRSA, Hx Shingles, Hx Tuberculosis, Hx Known/ Suspected VRE, Hx Known/Suspected VRSA, History Other Infectious Disease, Traveled Outside the [place] in Last 30 Days - Family History Known Family History: Positive: Cardiac Disease - [place] - Social History Alcohol Use: Rare Alcohol Amount: 6 pack on weekends Hx Substance Use: No Substance Use Type: Reports: None Hx Tobacco Use: Yes Smoking Status (MU): Former Smoker Type: Cigarettes Amount Used/How Often: chewed Have You Smoked in the Last Year: No Review of Systems Positive: Other - Neck pain; NEGATIVE: back pain 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 Positive: Headache All Other Systems Reviewed And Are Negative: Yes Physical Exam - Summary Physical Exam Summary: Appearance: Well appearing, no pain distress Skin: warm, dry, reflects adequate perfusion, abrasion over the face and laceration over the nose, dried blood on bilateral hands Head/face: normal Eyes: EOMI, ELMA ENT: laceration nose with flap,dried blood in the bilateral nostrils Neck: supple, nontender Respiratory: CTA, breath sounds present Cardiovascular: RRR, pulses symmetrical Abdomen: nontender, soft Bowel: present Musculoskeletal: normal, strength/ROM intact Neuro: normal, sensory motor intact, A&Ox3 GCS: 15 Triage Information Reviewed: Yes Vital Signs On Initial Exam: Initial Vitals BP 150/80 08/28/17 22:07 Vital Signs Reviewed: Yes - Addie Coma Scale Best Eye Response: 4 - Spontaneous Best Motor Response: 6 - Obeys Commands Best Verbal Response: 5 - Oriented Coma Scale Total: 15 Diagnostics - Vital Signs Vital Signs Temp Pulse Resp BP Pulse Ox 08/28/17 23:20 102 14 137/86 97 08/28/17 23:00 113 18 96 08/28/17 22:30 92 8 136/81 95 08/28/17 22:22 98.1 F 109 18 146/101 97 08/28/17 22:07 150/80 - Laboratory Lab Results: Lab Results 08/28/17 08/28/17 Range/Units 23:15 23:15 WBC 9.9 (3.5-10.8) 10^3/ul RBC 5.57 H (4.0-5.4) 10^6/ul Hgb 16.4 (14.0-18.0) g/dl Hct 48 (42-52) % MCV 86 (80-94) fL MCH 29 (27-31) pg MCHC 34 (31-36) g/dl RDW 15 (10.5-15) % Plt Count 211 (150-450) 10^3/ul MPV 8 (7.4-10.4) um3 Neut % (Auto) 68.7 (38-83) % Lymph % (Auto) 24.7 L (25-47) % Mcdonough % (Auto) 4.5 (1-9) % Eos % (Auto) 1.8 (0-6) % Baso % (Auto) 0.3 (0-2) % Absolute Neuts (auto) 6.8 (1.5-7.7) 10^3/ul Absolute Lymphs (auto) 2.4 (1.0-4.8) 10^3/ul Absolute Monos (auto) 0.4 (0-0.8) 10^3/ul Absolute Eos (auto) 0.2 (0-0.6) 10^3/ul Absolute Basos (auto) 0 (0-0.2) 10^3/ul Absolute Nucleated RBC 0 10^3/ul Nucleated RBC % 0.1 Urine Color Straw Urine Appearance Clear Urine pH 6.0 (5-9) Ur Specific [place] 1.003 L (1.010-1.030) Urine Protein Negative (Negative) Urine Ketones Negative (Negative) Urine Blood Negative (Negative) Urine Nitrate Negative (Negative) Urine Bilirubin Negative (Negative) Urine Urobilinogen Negative (Negative) Ur Leukocyte Esterase Negative (Negative) Urine Glucose Negative (Negative) Result Diagrams: 08/28/17 23:15 08/28/17 23:15 Lab Statement: Any lab studies that have been ordered have been reviewed, and results considered in the medical decision making process. - CT CT Brain CT Interpretation: No Acute Changes - No hemorrhage. No mass. No detectable infarct. Osseous structures are intact. ED physician reviewd radiology report and agrees. CT Interpretation Completed By: Radiologist CT Maxillofacial CT Interpretation: Positive (See Comments) - There is slight angulation of the left nasal bone. Questionable fracture. There is overlying soft tissue swelling. Nose remains midline. No other orbital or facial fracture. Globes and orbits are intact. ED physician reviewed radiology repotr and agrees. CT Interpretation Completed By: Radiologist CT C-Spine CT Interpretation: Positive (See Comments) - There is possible soft tissue swelling along the prevertebral region more so than would be expected from fullness of the esophagus. Ther are anterior osteophytes that apepar "broken" at C5 and possibly C4, age indeterminate. If this was a hyperextension injury, it is possible that there is anterior ligamentous injury. MRI would be most helpful for further evaluation. No other cervical frracture or malaligmnet. ED physician reviewed radiology report and agrees. CT Interpretation Completed By: Radiologist Re-Evaluation - Re-Evaluation First Eval Re-Evaluation Time: 23:50 Comment: Discussed CT results and plan to transfer pt Adult Trauma Course/Dx - Course Assessment/Plan: Pt is a 52 y/o M who presents to ED s/p mechanical fall. Tonight, the pt was at a wedding outpatient receptionist and the line to the bathroom was long , so he went to urinate outside in a field. Pt then states he then just fell. Positive LOC. He currently c/o neck pain and CUMMINS. Associated pain is currently severe, ranked 9/10. Sx aggravated and alleviated by nothing. Denies CP and back pain. Unsure if Tetanus is UTD. Confirms EtOH consumption today, denies any other drug use. Pt is on Brilinta 90 mg BID which he has been taking for multiple years. PSHx cardiac stents. CT brain reveals no acute findings. UA negative for UTI. CT Maxillofacial reveals a questionable nasal bone fracture and CT C-spine reveals anterior osteophytes that appear "broken" at C5 and possibly C4. In the ED course, pt received Boostrix and kefzol. Discussed care of pt with [facility] who will talk to the neurosurgeon and call back. Discussed care of pt with Dr. Maria at 0010 who accepts pt for transfer to the ED. Pt will be transferred to [facility] with Dx of C-Spine fracture, head injury and nose laceration. He understands and agrees. Elevated BP noted. Pt must be transferred for trauma services and a plastic surgeon. - Diagnoses Provider Diagnoses: Laceration of nose, Cervical spine fracture, Head injury - Physician Notifications Discussed Care Of Patient With: [facility] Time Discussed With Above Provider: 23:52 Instructed by Provider To: Other - Will talk to the neurosurgeon and call back. Discussed care of pt with Dr. Maria at 0010 who accepts pt for transfer to the ED. Discharge - Discharge Plan Condition: Stable Disposition: TRANS HIGHER LVL OF CARE FAC Referrals: Mark Fournier, CHIEF METER READER [Primary Care Provider] - The documentation as recorded by the Patricia golden Rebecca accurately reflects the service I personally performed and the decisions made by me, Manav Masterson.
[2017-08-29] MEDS ORDERED: Ketorolac INJ* 30 MG/ML 1 ML VIAL IV PUSH ONE (00:44)
[2017-08-29] MEDS ORDERED: Ketorolac INJ* 30 MG/ML 1 ML VIAL ONE (00:46)
[2017-08-29] MEDS ORDERED: ceFAZolin 2 GM PREMIX (*) 50 ML IVPB ONE (00:50)
[2017-08-29 01:37] VITALS: BP 142/90
--- NOTE | 2017-08-29 07:36 | RAD ---
HISTORY: Syncope, facial trauma COMPARISONS: None TECHNIQUE: Multiple contiguous axial CT scans were obtained of the head without intravenous contrast. FINDINGS: HEMORRHAGE/INFARCT: There is no hemorrhage or acute infarct. MASSES/SHIFT: There is no mass or shift. EXTRA-AXIAL SPACES: There are no extra-axial fluid collections. SULCI AND VENTRICLES: The sulci and ventricles are normal in size and position for the patient's stated age. CEREBRUM: There are no focal parenchymal abnormalities. BRAINSTEM: There are no focal parenchymal abnormalities. CEREBELLUM: There are no focal parenchymal abnormalities. VESSELS: The vessels are grossly normal. PARANASAL SINUSES: The paranasal sinuses are clear. ORBITS: The orbits are unremarkable. BONES AND SOFT TISSUE: No bone or soft tissue abnormalities are noted. OTHER: None IMPRESSION: NO ACUTE INTRACRANIAL PATHOLOGY.
--- NOTE | 2017-08-29 07:38 | RAD ---
HISTORY: Facial trauma COMPARISONS: None TECHNIQUE: Multiple contiguous axial CT scans were obtained of the face without intravenous contrast, with coronal and sagittal multiplanar reformations. FINDINGS: BONES: There is no displaced fracture or dislocation. The orbital rim is intact. The zygomatic arch is intact. The pterygoid plates are intact. The questionable nondisplaced nasal bone fracture noted in the prior report is not clearly appreciated on the submitted images. ORBITS: The globes are round. The optic nerves are symmetric. The extraocular musculature is normal. There is no post septal or intraconal inflammatory change. There is no retrobulbar hematoma. There is bilateral proptosis. PARANASAL SINUSES: The paranasal sinuses are clear. BRAIN AND SOFT TISSUE: Unremarkable. OTHER: None. IMPRESSION: 1. NO FACIAL FRACTURE. 2. BILATERAL PROPTOSIS.
--- NOTE | 2017-08-29 07:42 | RAD ---
HISTORY: Syncope, facial trauma COMPARISONS: None TECHNIQUE: Multiple contiguous axial CT scans were obtained of the cervical spine without intravenous contrast, with coronal and sagittal multiplanar reformations. FINDINGS: BRAIN: The visualized brain is unremarkable CENTRAL CANAL: Evaluation of the central canal is limited on CT technique; however, there is no obvious canalicular mass or epidural hemorrhage. ALIGNMENT: There is straightening of the cervical lordosis. VERTEBRAL BODIES: There is multilevel anterolateral marginal osteophyte formation. Anteriorly at C5, there is marginal osteophyte versus a questionable nondisplaced fracture of the anterior superior endplate. Elsewhere, there is no displaced fracture. JOINTS: There is no subluxation or dislocation. There is mild osteoarthritis of the atlantoaxial, uncovertebral, and facet joints MUSCULATURE: Unremarkable INTERVERTEBRAL DISCS: There is diffuse loss of intervertebral disc height. AXIAL IMAGES: C2-C3: There is no osseous neural foraminal narrowing or central canal stenosis. C3-C4: There is no osseous neural foraminal narrowing or central canal stenosis. C4-C5: There is no osseous neural foraminal narrowing or central canal stenosis. C5-C6: There is bilateral uncovertebral hypertrophy. There is mild left and moderate to severe right neural foraminal narrowing. There is no osseous central canal stenosis. C6-C7: There is no osseous neural foraminal narrowing or central canal stenosis. C7-T1: There is no osseous neural foraminal narrowing or central canal stenosis. SOFT TISSUES: There is questionable effacement of the prevertebral fat stripe at C5 and C6. OTHER: None. IMPRESSION: QUESTIONABLE NONDISPLACED FRACTURE OF THE ANTERIOR SUPERIOR ENDPLATE OF C5 VERSUS UNUNITED OSTEOPHYTE, WITH QUESTIONABLE PREVERTEBRAL EDEMA. PRELIMINARY FINDINGS WERE COMMUNICATED TO DR. CHA BY DR. URBANO AT APPROXIMATELY 11:45 PM ON MONDAY, AUGUST 28, 2017
== END 2017-08-29 01:38 | disposition short-term general hospital (02) ==
LOC: ED 21:55
DX: R51 Headache (principal); M54.2 Cervicalgia; R55 Syncope and collapse; Z87.891 Personal history of nicotine dependence; Z79.01 Long term (current) use of anticoagulants
CPT/HCPCS: 36415; 70450; 70486; 72125; 80053; 80320; 81003; 84484; 85025; 85610; 85730; 90715; 99284; G0480; J0690; J1885

== ENCOUNTER 2018-04-19 09:24 | Emergency (ER) | payer BC ==
[2018-04-19] MEDS ORDERED: Nitroglycerin 2% OINT* 1 GM PAK TOPICAL ONE (09:43)
[2018-04-19] MEDS ORDERED: Aspirin 81 mg CHEW TAB* 81 MG TAB.CHEW PO ONE (09:43)
[2018-04-19] MEDS ORDERED: Aspirin 81 mg CHEW TAB* 81 MG TAB.CHEW ONE (09:55)
[2018-04-19 10:04] LABS: ABS Basophils 0 10^3/ul (0-0.2); ABS Eosinophils 0.1 10^3/ul (0-0.6); ABS Lymphocytes 1.6 10^3/ul (1.0-4.8); ABS Monocytes 0.4 10^3/ul (0-0.8); ABS Neutrophils 4.7 10^3/ul (1.5-7.7); ABS Nucleated RBC 0 10^3/ul; Eosinophil % 1.3 % (0-6); Hematocrit 40 % (42-52); Hemoglobin 13.8 g/dl (14.0-18.0); Lymphocyte % 23.3 % (25-47); Mean Corpuscular HGB Conc 35 g/dl (31-36); Mean Corpuscular Hemoglobin 31 pg (27-31); Mean Corpuscular Volume 89 fL (80-94); Mean Platelet Volume 8.2 um3 (7.4-10.4); Nucleated Red Blood Cells % 0; Platelet Count 144 10^3/ul (150-450); Red Blood Count 4.51 10^6/ul (4.0-5.4); Red Cell Distribution Width 13 % (10.5-15); White Blood Count 6.8 10^3/ul (3.5-10.8)
[2018-04-19 10:20] LABS: INR 0.93 (0.77-1.02)
--- NOTE | 2018-04-19 10:32 | RAD ---
INDICATION: Chest pain COMPARISON: August 18, 2017 TECHNIQUE: An AP portable view obtained at 1011 hours is submitted. FINDINGS: Bones/Soft Tissues: There are no acute bony findings. Cardiomediastinal: The cardiomediastinal silhouette is normal. Lungs: There are no infiltrates. Pleura: There are no pleural effusions. Other: None IMPRESSION: NO ACTIVE DISEASE.
[2018-04-19 10:40] LABS: EGFR Non-African American 110.6 (>60)
[2018-04-19] MEDS ORDERED: Piperacillin/Tazobac ADVAN(*) 3.375 GM in NS 0.9% 100 ML* 100 ML IVPB ONE (11:13)
[2018-04-19] MEDS ORDERED: NS 0.9% 1000 ML*IV.FLUID IV ONE (11:13)
[2018-04-19] MEDS ORDERED: Vancomycin 1500 MG IV - x ONCE IVPB ONE ×2 (12:00)
[2018-04-19] MEDS ORDERED: Vancomycin(*) 1,000 MG VIAL IVPB SCH (12:00)
--- NOTE | 2018-04-19 14:48 | ED ---
Kvng Patel Tiffany, scribed for Manav Masterson on 04/19/18 at 0947 . HPI Chest Pain - HPI Summary HPI Summary: 53 y/o M presents to [facility] complains of chest pain that began nine hours ago. Describes a tickling sensation followed by sharp, stabbing pain every 5-10 minutes. Does not radiate. Rates the pain 3/10 in severity. Symptoms aggravated and alleviated by nothing. Reports left arm tingliness during tickling sensation. Denies shortness of breath, nausea, vomiting, dizziness. Pt referred to ED per doctor. Hx CAD/[place]. Stents placed 2012, 2013, 2014. - History of Current Complaint Chief Complaint: EDChestWallPain Time Seen by Provider: 04/19/18 09:33 Hx Obtained From: Patient Onset/Duration: Started Hours Ago - nine hours ago, Still Present Timing: Lasting Minutes - 5-10 min Current Severity: Mild Pain Intensity: 3 Pain Scale Used: 0-10 Numeric Chest Pain Radiates: No Character: Other: - tickling sensation followed by sharp, stabbing pain Aggravating Factor(s): Nothing Alleviating Factor(s): Nothing Associated Signs and Symptoms: Positive: Negative - shortness of breath, nausea , vomiting, dizziness, Other: - left arm tingliness during tickling sensation - Additional Pertinent History Primary Care Physician: [id number] - Allergy/Home Medications Allergies/Adverse Reactions: Allergies Allergy/AdvReac Type Severity Reaction Status Date / Time No Known Allergies Allergy Verified 05/04/17 07:28 Home Medications: Home Medications Atorvastatin* [Lipitor*] 80 mg PO QPM 04/19/18 [History Confirmed 04/19/18] Calcium Carbonate [Calcium] 500 mg PO BID 04/19/18 [History Confirmed 04/19/18] Lisinopril/HCTZ 20/25(NF) [Zestoretic 20/25(NF)] 1 tab PO DAILY 04/19/18 [ History Confirmed 04/19/18] PMH/Surg Hx/FS Hx/Imm Hx Previously Healthy: No Endocrine/Hematology History: Reports: Hx Anticoagulant Therapy, Hx Diabetes, Hx Anemia Denies: Hx Blood Disorders, Hx Blood Transfusions, Hx Bone Marrow Disease, Hx Systemic Lupus Erythematosus, Hx Sickle Cell Disease, Hx Thyroid Disease, Hx Unexplained Bleeding, Other Endocrine/Hematological Disorders Cardiovascular History: Reports: Hx Angina, Hx Coronary Artery Disease, Hx Hypercholesterolemia, Hx Hypertension, Hx Myocardial Infarction Denies: Hx Aneurysm, Hx Angioplasty, Hx Cardiac Arrest, Hx Cardiomegaly, Hx Congenital Heart Disease, Hx Congestive Heart Failure, Hx Deep Vein Thrombosis, Hx Embolism, Hx Hypotension, Hx Pacemaker/ICD, Hx Peripheral Vascular Disease, Hx Rheumatic Fever, Hx Valvular Heart Disease, Other Cardiovascular Problems/ Disorders Respiratory History: Reports: Hx Seasonal Allergies, Hx Sleep Apnea - CPAP at bedside Denies: Hx Asthma, Hx Chronic Bronchitis, Hx Chronic Obstructive Pulmonary Disease (COPD), Hx Cystic Fibrosis, Hx Lung Cancer, Hx Pleural Effusion, Hx Pneumonia, Hx Pulmonary Edema, Hx Pulmonary Embolism, Other Respiratory Problems /Disorders GI History: Reports: Hx Hiatal Hernia Denies: Hx Cirrhosis, Hx Crohn's Disease, Hx Diverticulosis, Hx Gall Bladder Disease, Hx Gastroesophageal Reflux Disease, Hx Gastrointestinal Bleed, Hx Irritable Bowel, Hx Jaundice, Hx Obstructive Bowel, Hx Ileostomy, Hx Pyloric Stenosis, Hx Ulcer, Other GI Disorders History: Denies: Hx Acute Renal Failure, Hx Benign Prostatic Hyperplasia, Hx Chronic Renal Failure, Hx Dialysis, Hx Kidney Infection, Hx Kidney Stones, Other Problems/Disorders Musculoskeletal History: Reports: Other Musculoskeletal History - golf injury to right foot SCIATICA Denies: Hx Arthritis, Hx Back Problems, Hx Bursitis, Hx Congenital Bone Abnormalities, Hx Fibromyalgia, Hx Gout, Hx Orthopedic Injury, Hx Osteoporosis, Hx Scoliosis, Hx Tendonitis Sensory History: Reports: Hx Contacts or Glasses Denies: Hx Cataracts, Hx Eye Injury, Hx Eye Prosthesis, Hx Glaucoma, Hx Legally Blind, Hx Macular Degeneration, Hx Vision Problem, Hx Deafness, Hx Hearing Aid, Hx Hearing Problem, Other Sensory Impairments Opthamlomology History: Reports: Hx Contacts or Glasses Denies: Hx Cataracts, Hx Eye Injury, Hx Eye Prosthesis, Hx Glaucoma, Hx Legally Blind, Hx Macular Degeneration, Hx Vision Problem, Other Sensory Impairments Neurological History: Denies: Other Neuro Impairments/Disorders Psychiatric History: Denies: Other Psychiatric Issues/Disorders - Surgical History Surgery Procedure, Year, and Place: cardiac stents 11/2012 Hx Anesthesia Reactions: No Infectious Disease History: No Infectious Disease History: Denies: Hx Clostridium Difficile, Hx Hepatitis, Hx Human Immunodeficiency Virus (HIV), Hx of Known/Suspected MRSA, Hx Shingles, Hx Tuberculosis, Hx Known/ Suspected VRE, Hx Known/Suspected VRSA, History Other Infectious Disease, Traveled Outside the [place] in Last 30 Days - Family History Known Family History: Positive: Cardiac Disease - [place] - Social History Alcohol Use: Weekly Alcohol Amount: 6 pack on weekends Hx Substance Use: No Substance Use Type: Reports: None Hx Tobacco Use: Yes Smoking Status (MU): Former Smoker Type: Cigarettes Amount Used/How Often: chewed Have You Smoked in the Last Year: No Review of Systems Positive: Chest Pain - described as a tickling sensation followed by sharp, stabbing pain every 5-10 minutes, does not radiate Negative: Shortness Of Breath Negative: Vomiting, Nausea Musculoskeletal: Other - left arm tingliness during tickling sensation Neurological: Negative - Dizziness All Other Systems Reviewed And Are Negative: Yes Physical Exam - Summary Physical Exam Summary: Appearance: Well appearing, no pain distress Skin: warm, dry, reflects adequate perfusion Head/face: normal Eyes: EOMI, ELMA ENT: normal Neck: supple, non-tender Respiratory: CTA, breath sounds present Cardiovascular: RRR, pulses symmetrical Abdomen: non-tender, soft Bowel: present Musculoskeletal: normal, strength/ROM intact Neuro: normal, sensory motor intact, A&Ox3 Triage Information Reviewed: Yes Vital Signs On Initial Exam: Initial Vitals Temp Pulse Resp BP Pulse Ox 97.4 F 63 16 166/123 99 04/19/18 09:27 04/19/18 09:27 04/19/18 09:27 04/19/18 09:27 04/19/18 09:27 Vital Signs Reviewed: Yes Diagnostics - Vital Signs Vital Signs Temp Pulse Resp BP Pulse Ox 04/19/18 09:27 97.4 F 63 16 166/123 99 - Laboratory Lab Results: Lab Results 04/19/18 04/19/18 04/19/18 Range/Units 09:57 09:57 09:57 WBC 6.8 (3.5-10.8) 10^3/ul RBC 4.51 (4.0-5.4) 10^6/ul Hgb 13.8 L (14.0-18.0) g/dl Hct 40 L (42-52) % MCV 89 (80-94) fL MCH 31 (27-31) pg MCHC 35 (31-36) g/dl RDW 13 (10.5-15) % Plt Count 144 L (150-450) 10^3/ul MPV 8.2 (7.4-10.4) um3 Neut % (Auto) 69.2 (38-83) % Lymph % (Auto) 23.3 L (25-47) % [place] % (Auto) 5.9 (0-7) % Eos % (Auto) 1.3 (0-6) % Baso % (Auto) 0.3 (0-2) % Absolute Neuts (auto) 4.7 (1.5-7.7) 10^3/ul Absolute Lymphs (auto) 1.6 (1.0-4.8) 10^3/ul Absolute Monos (auto) 0.4 (0-0.8) 10^3/ul Absolute Eos (auto) 0.1 (0-0.6) 10^3/ul Absolute Basos (auto) 0 (0-0.2) 10^3/ul Absolute Nucleated RBC 0 10^3/ul Nucleated RBC % 0 INR (Anticoag Therapy) 0.93 (0.77-1.02) APTT 28.6 (26.0-36.3) seconds Sodium 141 (139-145) mmol/L Potassium 3.7 (3.5-5.0) mmol/L Chloride 106 (101-111) mmol/L Carbon Dioxide 28 (22-32) mmol/L Anion Gap 7 (2-11) mmol/L BUN 11 (6-24) mg/dL Creatinine 0.74 (0.67-1.17) mg/dL Est GFR ( Amer) 142.3 (>60) Est GFR (Non-Af Amer) 110.6 (>60) BUN/Creatinine Ratio 14.9 (8-20) Glucose 111 H (70-100) mg/dL Lactic Acid (0.5-2.0) mmol/L Calcium 9.1 (8.6-10.3) mg/dL Magnesium 2.1 (1.9-2.7) mg/dL Total Bilirubin 1.30 H (0.2-1.0) mg/dL AST 34 (13-39) U/L ALT 43 (7-52) U/L Alkaline Phosphatase 53 (34-104) U/L Troponin I 0.00 (<0.04) ng/mL B-Natriuretic Peptide ( - 100) pg/mL Total Protein 6.2 L (6.4-8.9) g/dL Albumin 4.0 (3.2-5.2) g/dL Globulin 2.2 (2-4) g/dL Albumin/Globulin Ratio 1.8 (1-3) 04/19/18 04/19/18 04/19/18 Range/Units 09:57 12:39 12:39 WBC (3.5-10.8) 10^3/ul RBC (4.0-5.4) 10^6/ul Hgb (14.0-18.0) g/dl Hct (42-52) % MCV (80-94) fL MCH (27-31) pg MCHC (31-36) g/dl RDW (10.5-15) % Plt Count (150-450) 10^3/ul MPV (7.4-10.4) um3 Neut % (Auto) (38-83) % Lymph % (Auto) (25-47) % [place] % (Auto) (0-7) % Eos % (Auto) (0-6) % Baso % (Auto) (0-2) % Absolute Neuts (auto) (1.5-7.7) 10^3/ul Absolute Lymphs (auto) (1.0-4.8) 10^3/ul Absolute Monos (auto) (0-0.8) 10^3/ul Absolute Eos (auto) (0-0.6) 10^3/ul Absolute Basos (auto) (0-0.2) 10^3/ul Absolute Nucleated RBC 10^3/ul Nucleated RBC % INR (Anticoag Therapy) (0.77-1.02) APTT (26.0-36.3) seconds Sodium (139-145) mmol/L Potassium (3.5-5.0) mmol/L Chloride (101-111) mmol/L Carbon Dioxide (22-32) mmol/L Anion Gap (2-11) mmol/L BUN (6-24) mg/dL Creatinine (0.67-1.17) mg/dL Est GFR ( Amer) (>60) Est GFR (Non-Af Amer) (>60) BUN/Creatinine Ratio (8-20) Glucose (70-100) mg/dL Lactic Acid 0.6 (0.5-2.0) mmol/L Calcium (8.6-10.3) mg/dL Magnesium (1.9-2.7) mg/dL Total Bilirubin (0.2-1.0) mg/dL AST (13-39) U/L ALT (7-52) U/L Alkaline Phosphatase (34-104) U/L Troponin I 0.00 (<0.04) ng/mL B-Natriuretic Peptide 51 ( - 100) pg/mL Total Protein (6.4-8.9) g/dL Albumin (3.2-5.2) g/dL Globulin (2-4) g/dL Albumin/Globulin Ratio (1-3) Result Diagrams: 04/19/18 09:57 04/19/18 09:57 Lab Statement: Any lab studies that have been ordered have been reviewed, and results considered in the medical decision making process. - Radiology CXR Radiology Interpretation Completed By: Radiologist - NO ACTIVE DISEASE. ED physician has reviewed this report. - EKG 09:35 Cardiac Rate: NL - 63 BPM EKG Rhythm: Sinus Rhythm EKG Interpretation: No acute changes Re-Evaluation - Re-Evaluation First Eval Re-Evaluation Time: 11:20 Change: Unchanged Comment: Pt informed that he will need second troponin, requested by Dr. Phelps, his planting supervisor. Second Eval Re-Evaluation Time: 14:40 Change: Improved Comment: Patient feels better, informed of second troponin. Agreeable to discharge. Chest Pain Course/Dx - Course Course Of Treatment: 53 y/o M presents to [facility] complains of chest pain that began nine hours ago. Bloodwork, CXR, EKG obtained. Dr. Phelps, planting supervisor, says patient can be discharged if second troponin test normal. Patient discharged home with follow up from Dr. Phelps. - Chest Pain Differential Diagnosis/HQI/PQRI: Acute [place], ACS, Chest Wall, Lower Respiratory Infection - Diagnoses Provider Diagnoses: Chest pain - Provider Notifications Discussed Care Of Patient With: Owen Phelps Time Discussed With Above Provider: 11:11 Instructed by Provider To: Other - Dr. Phelps, patient's planting supervisor, advises to order a second troponin after four hours, then patient can be discharged if normal. Discharge - Sign-Out/Discharge Documenting (check all that apply): Discharge/Admit/Transfer - Discharge Plan Condition: Stable Disposition: HOME Patient Education Materials: Chest Pain (ED) Referrals: Mark Fournier, CORPORATE OFFICER [Primary Care Provider] - Owen Phelps MD [Medical Doctor] - 3 Days Additional Instructions: Follow up with your planting supervisor, Dr. Phelps, in 3 days. Return to the Emergency Department for any new or worsening symptoms. - Billing Disposition and Condition Condition: STABLE Disposition: HOME The documentation as recorded by the Kvng golden Tiffany accurately reflects the service I personally performed and the decisions made by Zelalem madden Emmanuel.
[2018-04-19 14:55] VITALS: BP 119/71
== END 2018-04-19 14:55 | disposition home or self-care (01) ==
LOC: ED 09:24
DX: R07.9 Chest pain, unspecified (principal); I25.10 Atherosclerotic heart disease of native coronary artery without angina pectoris; I25.2 Old myocardial infarction; Z95.5 Presence of coronary angioplasty implant and graft; Z87.891 Personal history of nicotine dependence
CPT/HCPCS: 36415; 71045; 80053; 83605; 83735; 83880; 84484; 85025; 85610; 85730; 93005; 99283; A9270-GY; J3370

== ENCOUNTER 2019-01-02 08:21 | Observation (INO) | payer BC ==
--- NOTE | 2019-01-02 08:39 | ED ---
HPI Chest Pain - HPI Summary HPI Summary: This pt is a 53 y/o male presenting to [facility] c/o intermittent chest pain x2 days. Pt reports that 2 days ago while he was cycling he began to experience chest pain and SOB. He then took a nitro and had relief of chest pain. Pt notes he also rode his bike yesterday but did not have any chest pain. Today while he was cleaning snow from his car he began to experience chest pain, SOB, and numbness in left hand. Pt states he is on physical therapy since last week for left shoulder soreness/pain he has had since last golf season. Chest pain is described on the left side, nonradiating, currently rating it 5/10 in severity. Denies diaphoresis, nausea, recent illness. Pt takes a baby aspirin every morning, he took one today. PMHx includes [place] s/p placement of multiple stents 3-4 (last one was placed 3 years ago). His chemical laboratory tester is Dr. Phelps. His last stress test was "years ago." - History of Current Complaint Chief Complaint: EDChestPainROMI Time Seen by Provider: 01/02/19 08:29 Hx Obtained From: Patient Onset/Duration: Started Days Ago, Still Present Timing: Intermittent, Lasting Days Current Severity: Moderate Pain Intensity: 5 Pain Scale Used: 0-10 Numeric Chest Pain Location: Left Anterior Chest Pain Radiates: No Aggravating Factor(s): Exertion Alleviating Factor(s): Nothing Associated Signs and Symptoms: Positive: Chest Pain, Numbness - Left hand, Dizziness, Shortness of Breath. Negative: Fever, Chills, Diaphoresis, Nausea - Additional Pertinent History Primary Care Physician: [id number] - Allergy/Home Medications Allergies/Adverse Reactions: Allergies Allergy/AdvReac Type Severity Reaction Status Date / Time No Known Allergies Allergy Verified 01/02/19 08:25 Home Medications: Home Medications Cyclobenzaprine TAB* [Flexeril 10 MG TAB*] 10 mg PO QPM 01/02/19 [History Confirmed 01/02/19] PMH/Surg Hx/FS Hx/Imm Hx Endocrine/Hematology History: Reports: Hx Anticoagulant Therapy, Hx Anemia Denies: Hx Blood Disorders, Hx Blood Transfusions, Hx Bone Marrow Disease, Hx Diabetes - Is no longer diabetic since bariatric surgery in 2017, Hx Systemic Lupus Erythematosus, Hx Sickle Cell Disease, Hx Thyroid Disease, Hx Unexplained Bleeding, Other Endocrine/Hematological Disorders Cardiovascular History: Reports: Hx Angina, Hx Coronary Artery Disease, Hx Hypercholesterolemia, Hx Hypertension, Hx Myocardial Infarction Denies: Hx Aneurysm, Hx Angioplasty, Hx Cardiac Arrest, Hx Cardiomegaly, Hx Congenital Heart Disease, Hx Congestive Heart Failure, Hx Deep Vein Thrombosis, Hx Embolism, Hx Hypotension, Hx Pacemaker/ICD, Hx Peripheral Vascular Disease, Hx Rheumatic Fever, Hx Valvular Heart Disease, Other Cardiovascular Problems/ Disorders Respiratory History: Reports: Hx Seasonal Allergies, Hx Sleep Apnea - CPAP at bedside Denies: Hx Asthma, Hx Chronic Bronchitis, Hx Chronic Obstructive Pulmonary Disease (COPD), Hx Cystic Fibrosis, Hx Lung Cancer, Hx Pleural Effusion, Hx Pneumonia, Hx Pulmonary Edema, Hx Pulmonary Embolism, Other Respiratory Problems /Disorders GI History: Reports: Hx Hiatal Hernia Denies: Hx Cirrhosis, Hx Crohn's Disease, Hx Diverticulosis, Hx Gall Bladder Disease, Hx Gastroesophageal Reflux Disease, Hx Gastrointestinal Bleed, Hx Irritable Bowel, Hx Jaundice, Hx Obstructive Bowel, Hx Ileostomy, Hx Pyloric Stenosis, Hx Ulcer, Other GI Disorders History: Denies: Hx Acute Renal Failure, Hx Benign Prostatic Hyperplasia, Hx Chronic Renal Failure, Hx Dialysis, Hx Kidney Infection, Hx Kidney Stones, Hx Renal Disease, Other Problems/Disorders Musculoskeletal History: Reports: Other Musculoskeletal History - golf injury to right foot SCIATICA Denies: Hx Arthritis, Hx Back Problems, Hx Bursitis, Hx Congenital Bone Abnormalities, Hx Fibromyalgia, Hx Gout, Hx Orthopedic Injury, Hx Osteoporosis, Hx Scoliosis, Hx Tendonitis Sensory History: Reports: Hx Contacts or Glasses Denies: Hx Cataracts, Hx Eye Injury, Hx Eye Prosthesis, Hx Glaucoma, Hx Legally Blind, Hx Macular Degeneration, Hx Vision Problem, Hx Deafness, Hx Hearing Aid, Hx Hearing Problem, Other Sensory Impairments Opthamlomology History: Reports: Hx Contacts or Glasses Denies: Hx Cataracts, Hx Eye Injury, Hx Eye Prosthesis, Hx Glaucoma, Hx Legally Blind, Hx Macular Degeneration, Hx Vision Problem, Other Sensory Impairments Neurological History: Denies: Other Neuro Impairments/Disorders Psychiatric History: Denies: Other Psychiatric Issues/Disorders - Surgical History Surgery Procedure, Year, and Place: cardiac stents 11/2012. Bariatric surgery 04/2017 Hx Anesthesia Reactions: No Infectious Disease History: No Infectious Disease History: Denies: Hx Clostridium Difficile, Hx Hepatitis, Hx Human Immunodeficiency Virus (HIV), Hx of Known/Suspected MRSA, Hx Shingles, Hx Tuberculosis, Hx Known/ Suspected VRE, Hx Known/Suspected VRSA, History Other Infectious Disease, Traveled Outside the [place] in Last 30 Days - Family History Known Family History: Positive: Cardiac Disease - [place] - Social History Alcohol Use: Weekly Alcohol Amount: 6 pack on weekends Hx Substance Use: No Substance Use Type: Reports: None Hx Tobacco Use: Yes Smoking Status (MU): Former Smoker Type: Cigarettes Amount Used/How Often: chewed Have You Smoked in the Last Year: No Review of Systems Negative: Fever, Chills, Skin Diaphoresis Negative: Erythema Negative: Sore Throat Positive: Chest Pain Positive: Shortness Of Breath. Negative: Cough Negative: Abdominal Pain, Vomiting, Nausea Negative: dysuria, hematuria Negative: Myalgia, Edema Negative: Rash Neurological: Other - POS: dizziness Positive: Numbness All Other Systems Reviewed And Are Negative: Yes Physical Exam - Summary Physical Exam Summary: Constitutional: Well-developed, Well-nourished, Alert. (-) Distressed Skin: Warm, Dry HENT: Normocephalic; Atraumatic Eyes: Conjunctiva normal Neck: Musculoskeletal ROM normal neck. (-) JVD, (-) Stridor, (-) Tracheal deviation Cardio: Rhythm regular, rate normal, Heart sounds normal; Intact distal pulses; The pedal pulses are 2+ and symmetric. Radial pulses are 2+ and symmetric. (-) Murmur Pulmonary/Chest wall: Effort normal. (-) Respiratory distress, (-) Wheezes, (-) Rales Abd: Soft, (-) Tenderness, (-) Distension, (-) Guarding, (-) Rebound Musculoskeletal: (-) Edema Lymph: (-) Cervical adenopathy Neuro: Alert, Oriented x3 Psych: Mood and affect Normal Triage Information Reviewed: Yes Vital Signs On Initial Exam: Initial Vitals Temp Pulse Resp BP Pulse Ox 97.6 F 70 16 177/105 99 01/02/19 08:22 01/02/19 08:22 01/02/19 08:22 01/02/19 08:22 01/02/19 08:22 Vital Signs Reviewed: Yes Diagnostics - Vital Signs Vital Signs Temp Pulse Resp BP Pulse Ox 01/02/19 08:22 97.6 F 70 16 177/105 99 - Laboratory Result Diagrams: 01/02/19 08:39 01/02/19 08:39 Lab Statement: Any lab studies that have been ordered have been reviewed, and results considered in the medical decision making process. - Radiology Chest XR Radiology Interpretation Completed By: Radiologist Summary of Radiographic Findings: IMPRESSION: No active cardiopulmonary disease. Dr. Sharif has reviewed this report. - EKG 08:26 Cardiac Rate: NL - at 70 bpm EKG Rhythm: Sinus Rhythm Summary of EKG Findings: No STEMI. Chest Pain Course/Dx - Course Assessment/Plan: Pt is a 53 y/o male, with hx of [place] and multiple stents, who presents with intermittent chest pain x2 days. Pt reports that 2 days ago while he was cycling he began to experience chest pain and SOB. He then took a nitro and had relief of chest pain. Pt notes he also rode his bike yesterday but did not have any chest pain. Today while he was cleaning snow from his car he began to experience chest pain, SOB, and numbness in left hand. Labs show total bilirubin of 1.6. First troponin is negative. Chest XR is negative for active cardiopulmonary disease. In the ED course the pt was given aspirin, nitroglycerin tab, nitro ointment. Discussed pt care with Dr. Mazariegos, hospitalist , who accepted pt for admission. - Diagnoses Provider Diagnoses: Unstable angina - Provider Notifications Discussed Care Of Patient With: Chikis Mazariegos - hospitalist Time Discussed With Above Provider: 09:10 Instructed by Provider To: Admit As Inpatient - Critical Care Time Critical Care Time: 30-74 min - 35 minutes Discharge - Sign-Out/Discharge Documenting (check all that apply): Patient Departure - Admit to [facility] Patient Received Moderate/Deep Sedation with Procedure: No - Discharge Plan Condition: Stable Disposition: ADMITTED TO [facility] Referrals: Mark Fournier, COMMISSIONS ANALYST [Primary Care Provider] - - Attestation Statements Document Initiated by Scribe: Yes Documenting Scribe: Pauline Perales Provider For Whom Scribe is Documenting (Include Credential): Chace Sharif MD Scribe Attestation: Pauline Patel, scribed for Chace Sharif MD on 01/02/19 at 1026. Status of Scribe Document: Ready
[2019-01-02] MEDS ORDERED: Nitroglycerin TAB 0.4 MG* 0.4 MG TAB SL ONE (08:44)
[2019-01-02] MEDS ORDERED: Aspirin 81 mg CHEW TAB* 81 MG TAB.CHEW PO ONE (08:44)
[2019-01-02 08:45] LABS: ABS Basophils 0 10^3/ul (0-0.2); ABS Eosinophils 0.1 10^3/ul (0-0.6); ABS Monocytes 0.4 10^3/ul (0-0.8); ABS Neutrophils 2.9 10^3/ul (1.5-7.7); ABS Nucleated RBC 0 10^3/ul; Eosinophil % 1.6 %; Hematocrit 44 % (42-52); Hemoglobin 15.3 g/dl (14.0-18.0); Lymphocyte % 36.7 %; Mean Corpuscular HGB Conc 34 g/dl (31-36); Mean Corpuscular Hemoglobin 30 pg (27-31); Mean Corpuscular Volume 88 fL (80-94); Mean Platelet Volume 8.1 fL (7.4-10.4); Nucleated Red Blood Cells % 0; Platelet Count 167 10^3/ul (150-450); Red Blood Count 5.02 10^6/ul (4.00-5.40); Red Cell Distribution Width 13 % (10.5-15); White Blood Count 5.4 10^3/ul (3.5-10.8)
[2019-01-02 09:02] LABS: Albumin 4.6 g/dL (3.2-5.2); BUN/Creatinine Ratio 18.1 (8-20); EGFR African American 117.3 (>60); EGFR Non-African American 96.9 (>60); Globulin 2.3 g/dL (2-4); Potassium 4.2 mmol/L (3.5-5.0); Total Bilirubin 1.6 mg/dL (0.2-1.0); Total Protein 6.9 g/dL (6.4-8.9)
[2019-01-02] MEDS ORDERED: Nitro 2% OINT* (Nitroglycerin) 1 INCH/PAK PAK TOPICAL ONE (09:04)
[2019-01-02] MEDS ORDERED: Nitro 2% OINT* (Nitroglycerin) 1 INCH/PAK PAK ONE (09:06)
[2019-01-02] MEDS ORDERED: Morphine VIAL* 10 MG/ML 1 ML VIAL IV PRN (10:40)
[2019-01-02] MEDS ORDERED: Al Hydrox/Mg Hydrox/Simet LIQ* 30 ML UDC PO PRN (10:40)
[2019-01-02] MEDS ORDERED: Acetaminophen TAB* 325 MG PO PRN (10:40)
[2019-01-02] MEDS ORDERED: Nitroglycerin TAB 0.4 MG* 0.4 MG TAB SL PRN (10:43)
--- NOTE | 2019-01-02 12:52 | HP ---
CC: Mark Fournier NP; Dr. Phelps; Dr. Chilel * HISTORY AND PHYSICAL: DATE OF ADMISSION: 01/02/19 PRIMARY CARE PROVIDER: Mark Fournier NP CHIEF COMPLAINT: Chest pain. HISTORY OF PRESENT ILLNESS: Juan Nick is a 53-year-old male with history of extensive coronary artery disease with a total of 5 stents in the past, who presented to the hospital complaining of chest pain. The patient stated that the chest pain originally occurred when he was exercising on his exercise bike 2 days ago. He stated that he experienced some substernal pressure associated with tingling in bilateral hands and some shortness of breath. When he stopped exercising, the pain resolved. He also took some nitroglycerin and he thought that the pain got better after that also. On Wednesday, which was yesterday, he exercised on the bike again without any issues. Today, in the morning, he was wiping snow off his car and he noted some substernal pressure again. He came into the ED for evaluation. Here, his EKG is unchanged from prior and his troponin was negative. He is going to be placed on overnight observation with a diagnosis of chest pain to rule out angina. PAST MEDICAL HISTORY: 1. History of coronary artery disease with initial cardiac catheterization in 2012 and stent placement into mid RCA and distal RCA dissection noted. In April 2014, he had a cardiac catheterization again, which showed occluded stent into the RCA and another stent placed at that point. In 2014, the patient had a total of 3 cardiac catheterizations. In March, it was noted he had focal in- stent restenosis at 80% and placement of another stent was unsuccessful at that point and the patient was referred to [facility] for atherectomy and stent that was performed on 04/16/15. In September 2015, he had a cardiac catheterization that showed restenosis of the RCA stent and another repeated high pressure balloon, dilatations and another stent. Overall, the patient had 5 stents placed. His most recent cardiac stress test obtained in July of 2017 was "low-risk". 2. The patient has history of gastric bypass surgery performed by Dr. Chilel in 2016. Since then, his diabetes and obstructive sleep apnea resolved. He no longer uses CPAP. He still has history of obesity. 3. History of dyslipidemia. 4. History of hypertension. MEDICATIONS: Include: 1. Flexeril 10 mg q.p.m. 2. Nitroglycerin on a p.r.n. basis. 3. Lisinopril/hydrochlorothiazide 20/25 one tablet daily. 4. Vitamin B12 1000 mcg daily. 5. Brilinta 60 mg b.i.d. The dose was just lowered at the end of [address] Phelps. 6. Calcium carbonate 500 mg b.i.d. 7. Lipitor 80 mg q.p.m. 8. Aspirin 81 mg daily. 9. Multivitamin 1 tablet b.i.d. 10. Metoprolol tartrate 25 mg b.i.d. 11. Vitamin D3 1000 units daily. ALLERGIES: No known drug allergies. FAMILY HISTORY: Extensive coronary artery disease with 1 sister dying at the age of 33 secondary to "cardiac thrombosis". Father in his 50s from heart attack. There is also another brother who had 2 stents at the age of 43. 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 He drinks approximately 6 to 8 beers on the weekend, but not during the week. He used to chew tobacco, but he quit 5 years ago. There is no illicit drug use. As his surrogate, he names his female domestic partner, Flora Young. REVIEW OF SYSTEMS: Please see history of present illness. The patient stated that up until this weekend, he had good exercise tolerance without any issues. He denies any recent illnesses. Currently, he denies any chest pain or shortness of breath, but his pain occurred today in the morning when he was wiping snow off the car. All the remaining 12 systems were reviewed with the patient and were otherwise negative. PHYSICAL EXAMINATION GENERAL: The patient is a very pleasant 53-year-old male with a BMI of 33. The patient is in no acute distress. Alert, awake, and oriented x3. VITAL SIGNS: Blood pressure of 129/69, heart rate of 62 and regular, respiratory rate 24, oxygen saturation 99% on room air, temperature of 97.6. HEENT: Head: Atraumatic, normocephalic. Eyes: Pupils are equal, reactive to light and accommodation. Oropharynx is clear. Mucosa moist. NECK: Supple. No JVD. No bruits bilaterally. RESPIRATORY: Clear to auscultation bilaterally. CARDIOVASCULAR: Regular rate and rhythm. No murmur. ABDOMEN: Soft, nontender. Bowel sounds are present in all 4 quadrants. EXTREMITIES: There is no edema. Pulses are +2 bilaterally. No clubbing or cyanosis. NEUROLOGIC: Speech is clear. Cranial nerves II through XII are grossly intact. Motor strength is 5/5 bilaterally. PSYCHIATRIC: Pleasant, cooperative with evaluation with no evidence of anxiety or depression. SKIN: On evaluation of the skin, no ecchymotic areas or rashes noted. DIAGNOSTIC STUDIES/LAB DATA: Laboratory data showed white blood cell count of 5.4, hemoglobin 15.3, hematocrit 44, and platelets 167. Sodium 138, potassium 4.8, chloride 102, carbon dioxide 30, BUN 15, creatinine 0.83. Liver function tests showed chronically elevated total bilirubin of 1.6, otherwise unremarkable. Troponin was 0. The patient's EKG showed normal sinus rhythm with negative T-wave in lead III and aVF, which is chronic for this patient. Portable chest x-ray showed no acute cardiopulmonary abnormality. ASSESSMENT AND PLAN: 1. A 53-year-old male with history of 5 cardiac stents in the past, who presents complaining of exercise-induced chest pain that currently is resolved. The patient's cardiac enzymes are unremarkable so far and his EKG is at baseline. At this point, the patient is going to be observed on telemetry monitored bed with followup troponins. If the troponins continue to be negative , he is going to undergo a cardiac stress test in the morning. I will continue the patient's aspirin 81 mg daily. Due to his pain, I will increase his Brilinta back to 90 mg twice a day. 2. For the patient's hypertension, his outpatient medications including metoprolol, lisinopril and hydrochlorothiazide are going to be continued. 3. For his hyperlipidemia, Lipitor is going to be continued. 4. For DVT prophylaxis, the patient is going to be placed on heparin subcutaneously due to moderate risk. 5. The patient's code status is full and his surrogate is his female friend as mentioned above. TIME SPENT: Approximately 62 minutes was spent on admission of this patient, more than half that time was spent [id number] with the patient during the interview and physical exam. [id number]/[facility] #: [id number] KALEIDA HEALTHEdgardo
[2019-01-02] MEDS: Heparin VIAL(*) 5000 UNITS/ML VIAL (FIVE THOUSAND) SUBCUT SCH ×2 (13:27→21:18)
[2019-01-02] MEDS ORDERED: Cyclobenzaprine TAB* 10 MG PO SCH (18:00)
[2019-01-02] MEDS ORDERED: Atorvastatin* 80 MG TAB PO SCH (18:00)
[2019-01-02] MEDS ORDERED: Ticagrelor* 90 MG TAB PO SCH (21:00)
[2019-01-02] MEDS: Metoprolol Tartrate TAB* 25 MG PO SCH (21:18)
[2019-01-02] MEDS: Calcium Carbonate TAB* 1250 MG (CALCIUM 500 MG) PO SCH (21:18)
[2019-01-02] MEDS: Ticagrelor* 90 MG TAB PO SCH (21:19)
[2019-01-02] MEDS: Multivitamins/Minerals TAB PO SCH (21:19)
[2019-01-03] MEDS: Heparin VIAL(*) 5000 UNITS/ML VIAL (FIVE THOUSAND) SUBCUT SCH (06:26)
[2019-01-03] MEDS ORDERED: Lisinopril TAB* 10 MG PO SCH (09:00)
[2019-01-03] MEDS ORDERED: Cyanocobalamin TAB* 500 MCG PO SCH (09:00)
[2019-01-03] MEDS ORDERED: Cholecalciferol TAB* 1000 UNITS PO SCH (09:00)
[2019-01-03] MEDS ORDERED: Hydrochlorothiazide TAB* 25 MG PO SCH (09:00)
[2019-01-03] MEDS: Multivitamins/Minerals TAB PO SCH (10:45)
[2019-01-03] MEDS: Metoprolol Tartrate TAB* 25 MG PO SCH (10:45)
[2019-01-03] MEDS: Calcium Carbonate TAB* 1250 MG (CALCIUM 500 MG) PO SCH (10:45)
[2019-01-03] MEDS: Ticagrelor* 90 MG TAB PO SCH (10:45)
[2019-01-03 11:00] VITALS: BP 114/76
--- NOTE | 2019-01-03 13:11 | DS ---
CC: Dr. Phelps; Mark Fournier NP; Dr. Love * DISCHARGE SUMMARY: DATE OF ADMISSION: 01/02/19 DATE OF DISCHARGE: 01/03/19 PRIMARY CARE PROVIDER: Mark Fournier NP TRACK WATCHMAN: Dr. Owen Phelps. ATTENDING FOR THIS ADMISSION: Dr. Chikis Mazariegos. MY ATTENDING FOR TODAY: Dr. Escalante * (dictated by Tony Williamson NP). HOSPITAL COURSE: Please refer to admission H and P by Dr. Mazariegos on 01/02/19, but in short, Mr. Nick is a 53-year-old male patient with an extensive history of coronary artery disease and stenting. The patient has had 5 stents in the past, 2 with restenosis and has been maintained medically through Dr. Phelps's office consistently. The patient stated when he was exercising at home, he started to experience some substernal chest pressure and then some numbness and tingling in the hands with some shortness of breath following thereafter. The patient states the pain stopped when he stopped exercising. He took his nitroglycerin at that time and thought that his pain was improved. He had the same symptoms again on Wednesday; however, this time it was not while he was on his exercise bike, he was wiping snow off his car. At that point, the patient decided to come to the emergency department for evaluation. He was concerned for further issues with acute coronary syndrome. His EKG in the emergency department does not show any acute changes. His troponin was negative. He was admitted to observation for his anginal symptoms and prepped for stress test. The patient underwent nuclear stress test this morning. I had a discussion with Dr. Bernal and also Dr. Phelps regarding the results of his stress test, which were intermediate risk based on the nuclear portion of the test. The impression showed moderate perfusion defect involving the apical through the septal segments of the inferior wall at stress with significant partial reversal at rest, which is most consistent with infarct or with enid- infarct ischemia, which is similar to his prior exam. He had a normal left ventricular ejection fraction, mild hypokinesis at the septum and the inferior wall. Again , I discussed the results with Dr. Phelps, who is his primary baseball player. Dr. Phelps agreed that the patient could be discharged with outpatient followup with the initiation of amlodipine at discharge. I discussed these results with the patient. The patient states his chest pain has completely resolved and he is feeling well and has agreed to follow up with Dr. Phelps. DISCHARGE DIAGNOSES: 1. Chest pain, rule out acute coronary syndrome. 2. History of hypertension. 3. History of dyslipidemia. 4. History of gastric bypass surgery in 2017. DISCHARGE MEDICATIONS: Include: 1. Vitamin D 1000 units p.o. daily. 2. Metoprolol tartrate 25 mg p.o. b.i.d. 3. Multivitamin 1 tablet daily. 4. Aspirin 81 mg daily. 5. Lipitor 80 mg in the evening. 6. Calcium 500 mg p.o. b.i.d. 7. Brilinta 60 mg p.o. b.i.d. 8. Vitamin B12 1000 mcg p.o. daily. 9. Lisinopril/hydrochlorothiazide 20/25 mg 1 tab p.o. daily. 10. Nitroglycerin 0.4 mg sublingual q.5 minutes as needed for chest pain. 11. Flexeril 10 mg p.o. in the evening. 12. New medication added is amlodipine 5 mg daily. REVIEW OF SYSTEMS: Today, the patient denies any fever, fatigue, or chills. No dizziness, no headache. No shortness of breath, no chest pain. No nausea, no vomiting, no abdominal pain. No arthralgias or myalgias and no further constitutional complaints. PHYSICAL EXAMINATION: In general, he is a well-appearing gentleman, in no acute distress. His vital signs are blood pressure 123/74, heart rate 61, O2 saturation 98% on room air, respiratory rate 16, and temperature of 98.0. HEENT : The patient is atraumatic, normocephalic. PERRLA with nonicteric sclerae. Oral mucosa is moist. Tongue is midline. No JVD noted. No carotid bruits auscultated. Cardiovascular: S1, S2 present. No murmurs, gallops, or rubs noted. Rate and rhythm are regular. Lungs are clear bilaterally to auscultation with no wheezing, rhonchi, or rales. Abdomen is soft, nontender, nondistended. No organomegaly noted. Positive bowel sounds in all 4 quadrants. is deferred. Musculoskeletal: There is no clubbing, no cyanosis , and no edema. The patient has full range of motion and steady gait. Gross motor and sensation are intact. Neurologic: He is grossly intact with no focalities. Psychiatric: Cooperative and appropriate. DIAGNOSTIC STUDIES/LAB DATA: WBCs 5.4, RBCs 5.02, hemoglobin 15.3, hematocrit 44, platelets 167. Sodium 138, potassium 4.2, chloride 102, CO2 of 30, BUN 15, creatinine 0.83, GFR was 96.9, glucose 113, lactic acid 1.3, calcium 10. Bilirubin 1.60, AST 26, ALT 35, alk phos 60. Troponins are negative at 0.00 x3. Total protein 6.9, albumin 4.6, globulin 2.3, albumin/globulin ratio is 2.0. Imaging: Nuclear medicine scanning as I noted above. Chest x-ray at admission on 01/02/19 shows no active cardiopulmonary disease. His EKG from 01/03/19 showed some mild sinus bradycardia with no significant ST segment changes and no changes from his EKG dated 01/02/19. DISPOSITION: The patient will be discharged to home. DIET: Heart-healthy as tolerated. ACTIVITY: Progress activity as tolerated. FOLLOWUPS: The patient was instructed to follow up with Dr. Phelps in the next 2 to 3 weeks; also with Mark Fournier NP, his primary care provider also in the next 2 to 3 weeks or as needed. DISCHARGE CONDITION: The patient was discharged in stable condition. The patient stated his understanding of his discharge instructions. TIME SPENT: Approximately 35 minutes discussing plan of care with the patient and Cardiology. TONY WILLIAMSON NP [id number]/[facility] #: [id number] ORESTES
== END 2019-01-03 12:58 | disposition home or self-care (01) ==
LOC: ED 08:21 → MEDTELE 10:40
PROVIDERS: ADMIT Internal Medicine; ATTEND Internal Medicine
DX: R07.9 Chest pain, unspecified (principal); I20.0 Unstable angina; I10 Essential (primary) hypertension; I25.10 Atherosclerotic heart disease of native coronary artery without angina pectoris; Z98.84 Bariatric surgery status; E78.5 Hyperlipidemia, unspecified; Z87.891 Personal history of nicotine dependence; R42 Dizziness and giddiness; Z79.01 Long term (current) use of anticoagulants; Z79.82 Long term (current) use of aspirin
CPT/HCPCS: 36415; 71045; 78452; 80053; 83605; 84484; 85025; 93005; 93017; 99282; A9270-GY; A9502; G0378; J1644

== ENCOUNTER → 2019-01-30 06:47 | Day surgery (SDC) | payer BC ==
[~2019-01-30 06:47] MED LIST changes: +Adenosine* 3 MG/ML VIAL ONE; +Aspirin 81 mg CHEW TAB* 81 MG TAB.CHEW ONE; +Aspirin 81 mg CHEW TAB* 81 MG TAB.CHEW PO SCH; +Atorvastatin* 80 MG TAB PO SCH; -Buffered Lidocaine 0.9% SYRIN* 5 ML/SYR SYRINGE INTRADERM ONE; +Calcium Carbonate TAB* 1250 MG (CALCIUM 500 MG) PO SCH; +Cholecalciferol TAB* 1000 UNITS PO SCH; +Cyanocobalamin TAB* 500 MCG PO SCH; +Cyclobenzaprine TAB* 10 MG PO SCH; -Dexamethasone IV* 4 MG/ML 1 ML (4 MG) IV SLOW PU ONE; +Diazepam TAB(*) 5 MG ONE; -Famotidine IV* 10 MG/ML 2 ML (20 mg) IV ONE; +Heparin 2 UNITS/ML IVPREMIX* 2,000 UNIT/1,000 ML BAG IV ONE; +Heparin(*) 1000 UNIT/ML 10 ML VIAL CATH LAB IV ONE; +Iohexol 350 (CONTRAST) 200 ML MDV IV ONE; +Lidocaine 1% INJ* 10 MG/ML 30 ML SDV ONE; +Lisinopril/HCTZ 20/25(NF) TAB PO SCH; +Metoprolol Tartrate TAB* 25 MG PO SCH; +Midazolam* 1 MG/ML 5 ML VIAL (5 MG) ONE; +Multivitamins/Minerals TAB PO SCH; +NS 0.9% 1000 ML** 1,000 ML IV SCH; +Nitroglycerin TAB 0.4 MG* 0.4 MG TAB SL PRN; -Scopolamine 1.5 mg* PATCH TRANSDERM ONE; +TICAGRELOR 60 MG PO ONE; +Ticagrelor* 90 MG TAB PO SCH; +VERAPAMIL 2.5 MG/ML 2 ML VIAL ** 5 mg/2 ml ONE; +amLODIPine TAB* 5 MG PO SCH; +diPHENhydraMINE PO* 25 MG ONE; +fentaNYL* 50 MCG/ML 2 ML VIAL (100 MCG VIAL) ONE; +nitroGLYCERIN DRIP* 25,000 MCG/250 ML BTL ONE
[2019-01-30 11:34] VITALS: BP 164/100
--- NOTE | 2019-01-31 00:46 | CATH ---
CC: Mark Fournier NP * CARDIAC CATHETERIZATION REPORT: DATE OF SERVICE: 01/30/19 - [facility] CATH PROCEDURE: Cardiac catheterization including coronary angiography. INDICATION: Coronary artery disease, chest pain. The patient is a 53-year-old gentleman with a history of coronary artery disease , history of stenting to his right coronary artery in 2012 with repeat stenting to his right coronary artery in 2013, 2 stents to his LAD in 2014 and another cardiac stent to his right coronary artery in September of 2015. The patient has been having crescendo angina. The patient was admitted to the hospital last week for chest pain. He ruled out for myocardial infarction. His cardiac stress test showed inferior wall infarct with enid-infarct ischemia, unchanged from his stress test in 2017. I saw the patient last week in the office and he was having continued episodes of chest pain despite medial therapy. Cardiac catheterization was recommended. DESCRIPTION OF PROCEDURE: The patient was brought to the cardiac catheterization lab in a fasting state. Informed consent had been obtained prior to the procedure. All labs have been reviewed. The patient was placed supine on the catheterization table. His right radial area was prepped and draped in the usual fashion. A 1% lidocaine was used for local anesthesia. The radial artery was entered via Seldinger technique and a 6-Mosotho hydrophilic sheath was placed, through which an infusion of nitroglycerin, heparin, and verapamil was done. The patient underwent coronary angiography using a 6-Mosotho AR1 catheter and a 6-Mosotho AL2 catheter. At the end of the procedure, the patient underwent FFR evaluation of the right coronary artery by Dr. Bernal. After that procedure, the patient was having significant pain in his right arm and started noticing significant hematoma and swelling of his right arm. His right arm was wrapped in the Torito bandage and the patient was urgently transferred to [facility] for evaluation. By report, a CAT scan of his right arm showed no extravasation of dye and the patient will be observed overnight. A total of 200 cc of Omnipaque dye was used. A total of 15 minutes of fluoro time was used. FINDINGS: 1. Right coronary artery: The RCA was a large dominant vessel, gave off the PDA. There was moderate calcification of the mid-right coronary artery stent. The distal right coronary artery had 50% restenosis. The stent to the PDA was open and patent. The posterolateral branch was without disease. There was an eccentric 50% stenosis in the [id number] right coronary artery that was moderately calcified. There was a 40% stenosis in the mid-right coronary artery just before the stents. 2. Left main artery: The left main was normal in size. It bifurcated into the LAD and circumflex. There was no evidence of stenosis. 3. Left anterior descending artery: The LAD was normal in size. It gave off two diagonal vessels. The stents to the LAD were open and patent. 4. Left circumflex artery: The left circumflex artery was normal in size. It gave off one obtuse marginal branch. There was no evidence of stenosis. IMPRESSION: 1. Stent to the left anterior descending open and patent. 2. Significant sequential stenosis of the proximal and mid-right coronary artery as well as 50% in-stent restenosis of the mid stent to the right coronary artery. The distal stents and the posterior descending artery stents were open and patent. The posterolateral branch of the right coronary artery was open and patent. RECOMMENDATION: The patient will undergo FFR evaluation of the right coronary artery for further evaluation. [id number]/[facility] #: [id number] ORESTES
--- NOTE | 2019-01-31 10:27 | CATH ---
CC: Dr. Phelps; Mark Fournier NP * FRACTIONAL FLOW RESERVE REPORT: DATE OF PROCEDURE: 01/30/19 - [facility] CATH INDICATION FOR PROCEDURE: Asked by Dr. Owen Phelps, who performed a diagnostic cardiac catheterization to perform fractional flow reserve analysis of the mid and distal lesions in the right coronary artery. DESCRIPTION OF PROCEDURE: The patient was already prepped and draped in sterile fashion with a right radial artery sheath in place. The patient had received an initial 3000 units of heparin with a radial artery cocktail. An additional 3500 units of heparin was administered and ACT was checked and found to be therapeutic. Guiding views were obtained utilizing a Heartrail 6-Hungarian IR 1 curve catheter. A Comet pressure guidewire by [employer] was utilized to perform FFR. The patient received 2 boluses of intracoronary adenosine of 48 mcg into the right coronary artery and FFR was measured. Following this, the wire was removed, the catheter was removed, and the sheath was removed, and a Vasc Band was placed. Of note, the patient had complained about mild tenderness during the diagnostic portion of the case in the elbow area and the forearm area. An injection was made via the sheath prior to starting the interventional procedure to look for any problem within the forearm and to the elbow area and no abnormality was noted with this injection. RESULTS: Fractional flow reserve analysis of right coronary artery: The 2 injections made revealed fractional flow reserve values of 0.81, which are borderline consistent with a hemodynamically significant lesion (the value was not less than the 0.8 cutoff). OVERALL ASSESSMENT: Borderline FFR value that did not meet criteria for intervention at this point in time. In discussing symptoms with the patient, interestingly he said at times he noticed pain at rest, which would not be consistent with the findings on FFR analysis. Continued ongoing medical management will be pursued through Dr. Phelps and eventual consideration for possible need for intervention in the future should symptoms progress. Addendum: Of note, after the procedure was completed and the patient was in the holding area approximately for over an hour, I was called to evaluate the patient's upper arm biceps area, which was found to be enlarged and firm suggesting a bleed into his upper arm. He was complaining about mild tingling to his fingers but had good arterial pulse wave on his finger. He was able to clench his fist except for the index finger, which initially he felt he could not close. An immediate ACT was checked and a blood pressure cuff was placed on the upper arm and pumped up to greater than systolic pressure and held there for 5 to 10 minutes. On relaxation of that, he was able to move the finger better. I then emergently discussed the case because of the persistent numbness with the [facility] in [place] and at that point in time, the decision was made to transfer the patient emergently up there for evaluation to make sure there was no chance of compartmental syndrome developing. I was instructed by Dr. Kely Rodriguez, who was the vascular surgeon and was graciously willing to accept the case, to wrap the arm with Torito bandage in order to keep any further expansion and this was performed and once again the pulse ox was checked to make sure the O2 saturation curve was present and it was present. The patient had mild discomfort in the upper arm at the time of transfer but no significant worsening. Further management for this probable upper arm bleed will be under the guidance of Dr. Kely Rodriguez in the [facility] at [facility] in [place], [place]. [id number]/[facility] #: [id number] MTDD
== END | disposition home or self-care (01) ==
LOC: CHICATH 06:47
PROVIDERS: ATTEND Specialist
DX: I25.118 Atherosclerotic heart disease of native coronary artery with other forms of angina pectoris (principal); R07.9 Chest pain, unspecified; I25.2 Old myocardial infarction; I10 Essential (primary) hypertension; E78.00 Pure hypercholesterolemia, unspecified; E66.9 Obesity, unspecified; G47.33 Obstructive sleep apnea (adult) (pediatric); Z87.891 Personal history of nicotine dependence
CPT/HCPCS: 85347; 93454; 99156; 99157; A9270-GY; C1769; C1876; C1887; J0153; J1644; J2250; J3010

== ENCOUNTER 2019-09-27 08:09 | Observation (INO) | payer BC ==
--- OUTSIDE RECORDS SUMMARY | 2019-09-27 08:36 | XMS REPORT | Continuity of Care Document ---
:1965 External Reference #:[id number] Author Name Marylou Fofana NP (transmitted by agent of provider Bertha Polanco) Address [address] [facility], [address] [place] [id number] Care Team Providers Name Role Phone Mark Fournier NP - Family Care Team Information Publicity Consultant [phone] Juan Chilel MD - Surgery Care Team Information Publicity Consultant [phone] Problems Active Problems Provider Date Patient post percutaneous transluminal Marylou Grove D.O. Onset: 2012 coronary angioplasty Coronary arteriosclerosis Marylou Grove D.O. Onset: 01/03/2013 Hyperlipidemia Marylou Grove D.O. Onset: 06/20/2013 Obesity Owen Phelps M.D. Onset: 01/31/2014 Preoperative cardiovascular examination Owen Phelps M.D. Onset: 2013 Social History Type Date Description Comments Sex Unknown ETOH Use Occasionally consumes alcohol ETOH Use Drinks 4 Alcoholic Beverages Per Week Recreational Drug Use Denies Drug Use Tobacco Use Start: Unknown End: Patient is a former Unknown smoker Smoking Status Reviewed: 09/08/19 Patient is a former smoker Exercise Type/Frequency Exercises regularly every morning Allergies, Adverse Reactions, Alerts Description No Known Drug Allergies Medications Active Medications SIG Qnty Indications Ordering Date Provider Brilinta 1 by mouth twice 90tabs I25.10 Owen Weiss 11/09/2018 60mg Tablets a day Zach Phelps Atorvastatin Calcium one a day 90tabs Owen Weiss 06/13/2015 80mg Zach Phelps Tablets Metoprolol Tartrate 1 tab by mouth 180tabs Owen Weiss 25mg twice a day Zach Phelps Tablets Aspirin Ec 1 by mouth every Unknown 81mg Tablets DR day Opurity 1 by mouth Unknown everyday Cpap for sleep apnea Unknown Device every night Tylenol 2 tablets every Unknown 325mg Capsules 4 hours as needed for pain Lisinopril-Hydrochlorot 1 by mouth every Unknown hiazide day 20-25mg Tablets Nitroglycerin 1 sl q5mins x3 Unknown 0.4mg Tablets as needed for Sub chest pain Cyclobenzaprine HCL 1 by mouth in Unknown 10mg the evening Tablets Amlodipine Besylate 1 by mouth every 90tabs Owen Weiss 5mg day Zach Phelps Tablets Medications Administered in Office Medication SIG Qnty Indications Ordering Provider Date Technetium TC 99M TetrofosmOwen payne M.D. 12/12/2015 Per Unit Dose Up To 40 Millicuries Injection Technetium TC 99M TetrofosmOwen payne M.D. 06/06/2015 Per Unit Dose Up To 40 Millicuries Injection Technetium TC 99M TetrofosminOwen M.D. 08/08/2014 Per Unit Dose Up To 40 Millicuries Injection Technetium TC 99M TetrofosminOwen M.D. 02/07/2014 Per Unit Dose Up To 40 Millicuries Injection Immunizations Description No Information Available Vital Signs Date Vital Result Comment 09/08/2019 7:46am Height 68 inches 5'8" Weight 228.00 lb Heart Rate 78 /min BP Systolic Sitting 142 mmHg Lue large cuff BP Diastolic Sitting 92 mmHg Lue large cuff Respiratory Rate 16 /min O2 % BldC Oximetry 99 % BMI (Body Mass Index) 34.7 kg/m2 06/16/2019 8:22am Height 68 inches 5'8" Weight 225.00 lb with shoes Heart Rate 61 /min BP Systolic Sitting 125 mmHg lue reg cuff BP Diastolic Sitting 81 mmHg lue reg cuff BP Systolic Standing 128 mmHg lue reg cuff BP Diastolic Standing 88 mmHg lue reg cuff Respiratory Rate 14 /min BMI (Body Mass Index) 34.2 kg/m2 Ejection Fraction 45% Results Description No Information Available Procedures Description No Information Available Medical Devices Description No Information Available Encounters Type Date Location Provider Dx Diagnosis Office Visit 06/16/2019 [facility] Owen Weiss I25.10 Athscl heart 8:30a [facility] Zach Phelps disease of [place] coronary artery w/o ang pctrs Office Visit 06/06/2019 [facility] Marylou G47.33 Obstructive sleep 11:30a [facility] apnea (adult) [facility] (pediatric) R91.8 Other nonspecific abnormal finding of lung field Office Visit 04/24/2019 8:00a [facility] Danelle G47.33 Obstructive sleep [facility] apnea (adult) [facility] (pediatric) R91.8 Other nonspecific abnormal finding of lung field J98.4 Other disorders of lung Assessments Date Code Description Provider 09/08/2019 G47.33 Obstructive sleep apnea (adult) (pediatric) Marylou Fofana NP 06/16/2019 I25.10 Atherosclerotic heart disease of [place] Owen Phelps M.D. coronary artery with 06/06/2019 G47.33 Obstructive sleep apnea (adult) (pediatric) Marylou Fofana NP 06/06/2019 R91.8 Other nonspecific abnormal finding of lung Marylou Fofana NP field 04/24/2019 G47.33 Obstructive sleep apnea (adult) (pediatric) Danelle Joy MD 04/24/2019 R91.8 Other nonspecific abnormal finding of lung Danelle Joy MD [facility] 04/24/2019 J98.4 Other disorders of lung Danelle Joy MD Plan of Treatment Future Appointment(s):12/11/2019 8:00 am - Marylou Fofana NP at [facility]09/08/2019 - Marylou Fofana NPG47.33 Obstructive sleep apnea (adult) (pediatric)Follow up:3 monthsRecommendations:I will request an AirTouch mask with memory foam for you from your homecare company. Please contact them about getting this. If you have difficulty with your equipment, or need to replace your mask or hoses, please contact your homecare agency, [facility] . If you have any further questions, please call the [facility] at [phone] If you have any sleepiness while driving you MUST avoid operating a vehicle or machinery. If you feel tired while driving, gut puller and take a nap or switch drivers. If you know you are sleepy and need to go somewhere, arrange for a ride or use public transportation. It is very important to not risk your safety or the safetyof others. Functional Status Description No Information Available Mental Status Description No Information Available Referrals Description No Information Available
[2019-09-27 08:38] LABS: ABS Eosinophils 0.1 10^3/ul (0-0.6); ABS Lymphocytes 1.6 10^3/ul (1.0-4.8); ABS Monocytes 0.3 10^3/ul (0-0.8); ABS Neutrophils 2.9 10^3/ul (1.5-7.7); Eosinophil % 2.4 %; Hematocrit 45 % (42-52); Hemoglobin 15.5 g/dL (14.0-18.0); Lymphocyte % 32.9 %; Mean Corpuscular HGB Conc 34 g/dL (31-36); Mean Corpuscular Hemoglobin 31 pg (27-31); Mean Corpuscular Volume 89 fL (80-94); Platelet Count 179 10^3/uL (150-450); Red Blood Count 5.08 10^6 /uL (4.18-5.48); Red Cell Distribution Width 13 % (10-15)
[2019-09-27 08:43] LABS: INR 0.97 (0.82-1.09)
[2019-09-27 08:49] LABS: Albumin 4.7 g/dL (3.2-5.2); Albumin/Globulin Ratio 2.1 (1-3); BUN/Creatinine Ratio 12.6 (8-20); Calcium 9.7 mg/dL (8.6-10.3); EGFR African American 110.6 (>60); EGFR Non-African American 91.4 (>60); Globulin 2.2 g/dL (2-4); Potassium 3.8 mmol/L (3.5-5.0); Total Bilirubin 1.7 mg/dL (0.2-1.0); Total Protein 6.9 g/dL (6.4-8.9)
[2019-09-27] MEDS ORDERED: Aspirin 81 mg CHEW TAB* 81 MG TAB.CHEW PO ONE (09:12)
[2019-09-27] MEDS: Nitroglycerin TAB 0.4 MG* 0.4 MG TAB SL ONE ×2 (09:18→10:18)
[2019-09-27] MEDS ORDERED: Famotidine IV* 10 MG/ML 2 ML (20 mg) IV SLOW PU ONE (10:26)
--- NOTE | 2019-09-27 11:06 | ED ---
HPI Chest Pain - HPI Summary HPI Summary: This patient is a 54-year-old male with a history of CAD and PR presenting to the ED with midsternal to left anterior chest pain which she describes as aching and pressure and nonradiating. Symptoms began approximately at 5 AM, have remained consistent. Symptoms only improve with nitroglycerin. He was able to take 3 nitroglycerin while at work this morning, all which improved his symptoms temporarily, with a continuing pain following. He states after 3 nitros, he decided to come to the ED due to his history. He states he had no jaw pain, headache, diaphoresis or arm pain while having the symptoms. However , he did endorse bilateral hand tingling which is also intermittent and associated with the chest discomfort. States this feels similar to his previous chest pain episodes, but not his PR. Symptoms are not associated with exertion or better with rest. History of stenting to the RCA in 2012, repeat stenting to the RCA in 2013, 2 stents to the LAD in 2014 and another stent to the RCA in 2014. Last stress test january 2019. 50% restenosis, pt subsequently to underwent FFR evaluation. Results for this were borderline FFR value but did not meet criteria for intervention. Last visit with Dr. Phelps 6 mos + Last ECHO - unknown (several years per pt). Prior smoking history. 6 pack alcohol on weekends. No exercise. Denies any anxiety hx. No caffeine this morning. Typically 1 cup per day. - History of Current Complaint Chief Complaint: EDChestPainROMI Time Seen by Provider: 09/27/19 08:29 Hx Obtained From: Patient Onset/Duration: Started Hours Ago Timing: Constant Initial Severity: Moderate Current Severity: Moderate Pain Intensity: 2 Pain Scale Used: 0-10 Numeric Chest Pain Location: Mid Sternal Chest Pain Radiates: No Aggravating Factor(s): Nothing Alleviating Factor(s): Nothing Associated Signs and Symptoms: Positive: Negative - Risk Factors AMI/ACS Risk Factors: Myocardial Infarction, Sedentary Lifestyle, Family History , Nitroglycerine Use, Hypertension, Smoking - past history - Additional Pertinent History Primary Care Physician: [id number] - Allergy/Home Medications Allergies/Adverse Reactions: Allergies Allergy/AdvReac Type Severity Reaction Status Date / Time No Known Allergies Allergy Verified 09/27/19 08:25 PMH/Surg Hx/FS Hx/Imm Hx Previously Healthy: Yes Endocrine/Hematology History: Reports: Hx Anticoagulant Therapy, Hx Anemia Denies: Hx Blood Disorders, Hx Blood Transfusions, Hx Bone Marrow Disease, Hx Diabetes - Is no longer diabetic since bariatric surgery in 2017, Hx Systemic Lupus Erythematosus, Hx Sickle Cell Disease, Hx Thyroid Disease, Hx Unexplained Bleeding, Other Endocrine/Hematological Disorders Cardiovascular History: Reports: Hx Angina, Hx Coronary Artery Disease, Hx Hypercholesterolemia, Hx Hypertension, Hx Myocardial Infarction Denies: Hx Aneurysm, Hx Angioplasty, Hx Cardiac Arrest, Hx Cardiomegaly, Hx Congenital Heart Disease, Hx Congestive Heart Failure, Hx Deep Vein Thrombosis, Hx Embolism, Hx Hypotension, Hx Pacemaker/ICD, Hx Peripheral Vascular Disease, Hx Rheumatic Fever, Hx Valvular Heart Disease, Other Cardiovascular Problems/ Disorders Respiratory History: Reports: Hx Seasonal Allergies, Hx Sleep Apnea - CPAP at bedside Denies: Hx Asthma, Hx Chronic Bronchitis, Hx Chronic Obstructive Pulmonary Disease (COPD), Hx Cystic Fibrosis, Hx Lung Cancer, Hx Pleural Effusion, Hx Pneumonia, Hx Pulmonary Edema, Hx Pulmonary Embolism, Other Respiratory Problems /Disorders GI History: Reports: Hx Hiatal Hernia Denies: Hx Cirrhosis, Hx Crohn's Disease, Hx Diverticulosis, Hx Gall Bladder Disease, Hx Gastroesophageal Reflux Disease, Hx Gastrointestinal Bleed, Hx Irritable Bowel, Hx Jaundice, Hx Obstructive Bowel, Hx Ileostomy, Hx Pyloric Stenosis, Hx Ulcer, Other GI Disorders History: Denies: Hx Acute Renal Failure, Hx Benign Prostatic Hyperplasia, Hx Chronic Renal Failure, Hx Dialysis, Hx Kidney Infection, Hx Kidney Stones, Hx Renal Disease, Other Problems/Disorders Musculoskeletal History: Reports: Other Musculoskeletal History - golf injury to right foot SCIAT[place] Denies: Hx Arthritis, Hx Back Problems, Hx Bursitis, Hx Congenital Bone Abnormalities, Hx Fibromyalgia, Hx Gout, Hx Orthopedic Injury, Hx Osteoporosis, Hx Scoliosis, Hx Tendonitis Sensory History: Reports: Hx Contacts or Glasses Denies: Hx Cataracts, Hx Eye Injury, Hx Eye Prosthesis, Hx Glaucoma, Hx Legally Blind, Hx Macular Degeneration, Hx Vision Problem, Hx Deafness, Hx Hearing Aid, Hx Hearing Problem, Other Sensory Impairments Opthamlomology History: Reports: Hx Contacts or Glasses Denies: Hx Cataracts, Hx Eye Injury, Hx Eye Prosthesis, Hx Glaucoma, Hx Legally Blind, Hx Macular Degeneration, Hx Vision Problem, Other Sensory Impairments Neurological History: Denies: Other Neuro Impairments/Disorders Psychiatric History: Denies: Other Psychiatric Issues/Disorders - Surgical History Surgery Procedure, Year, and Place: cardiac stents 11/2012. Bariatric surgery 04/2017 Hx Anesthesia Reactions: No - Immunization History Hx Pertussis Vaccination: No Immunizations Up to Date: Yes Infectious Disease History: No Infectious Disease History: Denies: Hx Clostridium Difficile, Hx Hepatitis, Hx Human Immunodeficiency Virus (HIV), Hx of Known/Suspected MRSA, Hx Shingles, Hx Tuberculosis, Hx Known/ Suspected VRE, Hx Known/Suspected VRSA, History Other Infectious Disease, Traveled Outside the [place] in Last 30 Days - Family History Known Family History: Positive: Cardiac Disease - PR - Social History Occupation: Employed Full-time Lives: With Family Alcohol Use: Weekly Alcohol Amount: Wednesday and Sundays 4-5/day Hx Substance Use: No Substance Use Type: Reports: None Hx Tobacco Use: Yes Smoking Status (MU): Former Smoker Type: Cigarettes Amount Used/How Often: chewed Have You Smoked in the Last Year: No Review of Systems Negative: Fever, Chills, Fatigue, Skin Diaphoresis Positive: Palpitations. Negative: Chest Pain Negative: Shortness Of Breath, Cough Negative: Abdominal Pain, Vomiting, Diarrhea, Nausea Genitourinary: Negative Positive: no symptoms reported, see HPI Negative: Arthralgia, Myalgia Skin: Negative Neurological: Negative All Other Systems Reviewed And Are Negative: Yes Physical Exam Triage Information Reviewed: Yes Vital Signs On Initial Exam: Initial Vitals Temp Pulse Resp BP Pulse Ox 97.9 F 75 20 157/88 100 09/27/19 08:18 09/27/19 08:18 09/27/19 08:18 09/27/19 08:18 09/27/19 08:18 Vital Signs Reviewed: Yes Appearance: Positive: Well-Appearing, Well-Nourished Skin: Positive: Warm, Skin Color Reflects Adequate Perfusion Head/Face: Positive: Normal Head/Face Inspection Eyes: Positive: EOMI, ELMA, Conjunctiva Clear Neck: Positive: Supple, No Lymphadenopathy Respiratory/Lung Sounds: Positive: Clear to Auscultation, Breath Sounds Present Cardiovascular: Positive: RRR, Pulses are Symmetrical in both Upper and Lower Extremities Musculoskeletal: Positive: Normal, Strength/ROM Intact Neurological: Positive: Speech Normal Psychiatric: Positive: Affect/Mood Appropriate AVPU Assessment: Alert Procedures - Sedation Patient Received Moderate/Deep Sedation with Procedure: No Diagnostics - Vital Signs Vital Signs Temp Pulse Resp BP Pulse Ox 09/27/19 11:01 15 09/27/19 10:59 18 130/86 09/27/19 10:29 15 123/85 09/27/19 10:18 12 147/89 09/27/19 10:01 14 09/27/19 09:59 14 130/88 09/27/19 09:54 16 127/83 09/27/19 09:29 18 127/83 09/27/19 09:01 17 09/27/19 08:59 14 142/79 09/27/19 08:29 14 154/93 09/27/19 08:21 9 09/27/19 08:18 97.9 F 75 20 157/88 100 - Laboratory Lab Results: Lab Results 09/27/19 09/27/19 09/27/19 Range/Units 08:25 08:25 08:25 WBC 5.0 (3.5-10.8) 10^3/uL RBC 5.08 (4.18-5.48) 10^6 /uL Hgb 15.5 (14.0-18.0) g/dL Hct 45 (42-52) % MCV 89 (80-94) fL MCH 31 (27-31) pg MCHC 34 (31-36) g/dL RDW 13 (10-15) % Plt Count 179 (150-450) 10^3/uL MPV 8.0 (7.4-10.4) fL Neut % (Auto) 57.3 % Lymph % (Auto) 32.9 % Sanders % (Auto) 7.0 % Eos % (Auto) 2.4 % Baso % (Auto) 0.4 % Absolute Neuts (auto) 2.9 (1.5-7.7) 10^3/ul Absolute Lymphs (auto) 1.6 (1.0-4.8) 10^3/ul Absolute Monos (auto) 0.3 (0-0.8) 10^3/ul Absolute Eos (auto) 0.1 (0-0.6) 10^3/ul Absolute Basos (auto) 0.0 (0-0.2) 10^3/ul Absolute Nucleated RBC 0.0 10^3/ul Nucleated RBC % 0.0 INR (Anticoag Therapy) 0.97 (0.82-1.09) Sodium 140 (135-145) mmol/L Potassium 3.8 (3.5-5.0) mmol/L Chloride 105 (101-111) mmol/L Carbon Dioxide 29 (22-32) mmol/L Anion Gap 6 (2-11) mmol/L BUN 11 (6-24) mg/dL Creatinine 0.87 (0.67-1.17) mg/dL Est GFR ( Amer) 110.6 (>60) Est GFR (Non-Af Amer) 91.4 (>60) BUN/Creatinine Ratio 12.6 (8-20) Glucose 122 H (70-100) mg/dL Calcium 9.7 (8.6-10.3) mg/dL Total Bilirubin 1.70 H (0.2-1.0) mg/dL AST 24 (13-39) U/L ALT 32 (7-52) U/L Alkaline Phosphatase 74 (34-104) U/L Troponin I 0.00 (<0.04) ng/mL Total Protein 6.9 (6.4-8.9) g/dL Albumin 4.7 (3.2-5.2) g/dL Globulin 2.2 (2-4) g/dL Albumin/Globulin Ratio 2.1 (1-3) Result Diagrams: 09/27/19 08:25 09/27/19 08:25 Lab Statement: Any lab studies that have been ordered have been reviewed, and results considered in the medical decision making process. Re-Evaluation - Re-Evaluation First Eval Change: Improved - improved following nitro .4 SL - rated 3/10 Second Eval Change: Improved - improved again following sublingual -rated 4/10 Chest Pain Course/Dx - Course Course Of Treatment: During course of treatment, the patient's evaluated for midsternal chest pain nonradiating. Patient states pain improves only with nitroglycerin. He did take a baby aspirin at home. He was given another baby aspirin on arrival into the ED. Vital signs were stable on arrival. Patient was nondiaphoretic and nontoxic in appearing. Patient appeared well. He continues to complain of midsternal chest pain rated 5/10. He has taken 3 nitros at home with good relief, however his symptoms now remain. He was given another nitroglycerin 0.4 in the ED again with good relief. Labs are obtained which are WNL including a troponin of 0.00. Chest x-ray negative for any acute findings. Patient was kept and monitored and on reexamination, patient continues to complain of a 5/10 pain, nonradiating. He continues to endorse numbness and tingling into the fingertips, only present when he is having the chest pain. He was subsequently given a 0.4 nitroglycerin which again relieved his symptoms. A second troponin 0.00. At this point, discussed case with attending, Dr. Matute, who recommends admission into the hospital d/t significant cardiac history. Discussed results and admission with patient. He agrees. Discussed case with Dr. Tanner, admitting physician. At this point, Nitropaste ordered for comfort measures. Current BP 146/105. Heart scor=4. Risk of mace = moderate. - Chest Pain Differential Diagnosis/HQI/PQRI: Acute PR, ACS, Angina, Chest Wall - Diagnoses Provider Diagnoses: Stable angina - Provider Notifications Discussed Care Of Patient With: Pauline Tanner - discussed with attending Dr. Matute at 10:45am Instructed by Provider To: Admit As Inpatient Discharge ED - Sign-Out/Discharge Documenting (check all that apply): Patient Departure - Discharge Plan Condition: Fair Disposition: ADMITTED TO [facility] - Billing Disposition and Condition Condition: FAIR Disposition: Admitted to [facility] - Attestation Statements Provider Attestation: pt seen by midlevel provider independently, based on their assessment, it was not necessary to present the case to me but I was available for consultation. I did not form a physician-patient relationship with the patient. The chart however, has been reviewed. am signing this note strictly in an administrative capacity.
[2019-09-27] MEDS ORDERED: Nitro 2% OINT* (Nitroglycerin) 1 INCH/PAK PAK TOPICAL ONE (12:19)
[2019-09-27] MEDS ORDERED: Acetaminophen TAB* 325 MG PO PRN (12:51)
[2019-09-27] MEDS ORDERED: Al Hydrox/Mg Hydrox/Simet LIQ* 30 ML UDC PO PRN (12:51)
[2019-09-27] MEDS: Enoxaparin(*) 40 MG/0.4 ML SYR SUBCUT SCH (13:44)
[2019-09-27] MEDS ORDERED: Nitroglycerin TAB 0.4 MG* 0.4 MG TAB SL PRN (14:31)
--- NOTE | 2019-09-27 16:40 | ECHO ---
*[facility]* [place] [address] Fax #: [phone] Transthoracic Echocardiogram Patient: Juan Nick : 1965 Study Date: 09/27/2019 Age: 54 Gender: M HR: 63 bpm Height: 68 in /172.7 cm BSA: 2.15 m^2 Weight: 225.5 lb /102.5 kg BMI: 34.4 kg/m^2 *Loft Worker: * Anusha Fowler [facility] *Referring Physician: * Pauline Tanner *Reading Physician: * Bianca Gomez MD Indications: Chest Pain, unspecified. History: PMH: Myocardial infarction. Risk factors: Former tobacco use. Hypertension. Diabetes mellitus. Dyslipidemia. Labs, prior tests, procedures, and surgery: Catheterization. There was a stenosis which was treated with a stent. Conclusions Summary: - Left ventricle: There is mild concentric hypertrophy. Systolic function is normal. The estimated ejection fraction is 55-60%. Wall motion is normal; there are no regional wall motion abnormalities. Left ventricular diastolic function parameters are normal. - Right ventricle: Systolic function is normal. - Mitral valve: There is trace regurgitation. - Tricuspid valve: There is trace regurgitation. - Pulmonary arteries: Systolic pressure can not be accurately estimated. - Compared w ith prior echocardiogram of 05/21/14,, no longer see inferior wall motion abnormality and ejection fraction has improved from 45-50%. Study data: Transthoracic echocardiogram. Procedure: Transthoracic echocardiography was performed. Image quality was fair. Complete 2D, spectral Doppler, and color flow Doppler. Location: Bedside. Patient status: Inpatient. Patient room number: 443-1. Rhythm: Normal sinus rhythm. Findings Left ventricle: The cavity size is normal. There is mild concentric hypertrophy. Systolic function is normal. The estimated ejection fraction is 55-60%. Wall motion is normal; there are no regional wall motion abnormalities. Left ventricular diastolic function parameters are normal. Right ventricle: The cavity size is mildly to moderately dilated. The moderator band is in a normal position. Systolic function is normal. Ventricular septum: There is septal flattening of the interventricular septum consistent with RV volume or pressure overload. Left atrium: The atrium is at the upper limits of normal in size. Right atrium: The atrium is mildly dilated. Mitral valve: The leaflets are mildly thickened. There is no evidence of stenosis. There is trace regurgitation. Aortic valve: The valve is trileaflet. The leaflets are mildly thickened. There is no evidence of stenosis. There is no significant regurgitation. Tricuspid valve: The leaflets are normal thickness. There is no evidence of stenosis. There is trace regurgitation. Pulmonic valve: The leaflets are normal thickness. There is no evidence of stenosis. There is trace regurgitation. Aorta: Aortic root: The aortic root is appears normal. Ascending aorta: The ascending aorta is appears normal. Aortic arch: The aortic arch is appears normal. Pericardium: A prominent pericardial fat pad is present. There is no significant pericardial effusion. Pulmonary arteries: The main pulmonary artery is normal-sized. Systolic pressure can not be accurately estimated. Systemic veins: Inferior vena cava: The vessel is at the upper limits of normal in size. There is (>= 50%) respiratory change in the IVC dimension. Measurements Left ventricle Value Ref Aortic valve Value Ref KAILYN, LAX 4.5 cm 4.2 - 5.8 Kevin diam, ED 2.0 cm ---- ESD, LAX 2.9 cm 2.5 - 4.0 Peak v, S 1.43 m/sec ---- FS, LAX 34 % 25 - 43 VTI, S 27.2 cm ---- PW, ED, LAX (H) 1.2 cm 0.6 - 1.0 Mean grad, S 4.0 mm Hg ---- FS 34 % 25 - 43 Peak grad, S 8.0 mm Hg ---- PW, ED (H) 1.2 cm 0.6 - 1.0 LVOT/AV, VTI ratio 0.74 ---- E', lat kevin, TDI 12.0 cm/sec >=10.0 E/e', lat kevin, 6 Mitral valve Value Ref TDI Peak E 0.77 m/sec ---- E', med kevin, TDI 8.2 cm/sec >=7.0 Peak A 0.54 m/sec -- -- E/e', med kevin, 9 Decel time 250 ms ---- TDI Peak grad, D 2.3 mm Hg ---- E', avg, TDI 10.1 cm/sec Peak E/A ratio 1.4 ---- E/e', avg, TDI 8 <=14 Pulmonic valve Value Ref LVOT Value Ref Peak v, S 0.73 m/sec ---- Peak neo, S 0.98 m/sec Peak grad, S 2.0 mm Hg ---- VTI, S 20.0 cm Mean grad, S 2 mm Hg Aortic root Value Ref Root diam 2.9 cm <4.3 Ventricular septum Value Ref Root max diam, ED 2.9 cm <4.3 IVS, ED (H) 1.2 cm 0.6 - 1.0 Ascending aorta Value Ref Right ventricle Value Ref AAo AP diam, S 2.7 cm ---- KAILYN, LAX 3.3 cm KAILYN minor ax, A4C (H) 4.5 cm 1.9 - 3.5 Aortic arch Value Ref mid Arch diam 2.5 cm ---- Left atrium Value Ref Decending aorta Value Ref AP dim, ES 4.00 cm 3.00 - Derrick peak neo 1.05 m/sec ---- 4.00 ML dim, A4C 3.5 cm Inferior vena cava Value Ref SI dim, A4C 5.2 cm Diam 2.1 cm ---- Vol/bsa, ES, 1-p 22 ml/m^2 12 - 37 A4C Vol/bsa, ES, A/L 27 ml/m^2 16 - 34 Right atrium Value Ref SI dim, ES 4.9 cm 3.4 - 5.3 ML dim, ES, A4C (H) 4.7 cm 2.6 - 4.4 SI dim, ES, A4C 4.9 cm 3.4 - 5.3 Estimated RAP 3 mm Hg Legend: (L) and (H) anthony values outside specified reference range. Prepared and electronically signed by Bianca Gomez MD 09/27/2019 16:40
--- NOTE | 2019-09-27 16:42 | HP ---
CC: Mark Fournier NP * HISTORY AND PHYSICAL: DATE OF ADMISSION: 09/27/19 PRIMARY CARE PROVIDER: Mark Fournier NP HEALTHCARE PROXY: His partner, Flora. CODE STATUS: Full code. CHIEF COMPLAINT: Intermittent chest pain for 2 weeks. HISTORY OF PRESENT ILLNESS: Mr. Nick is a 54-year-old man with history of coronary artery disease, status post 5 stents; sleeve gastrectomy in 2017; hypertension, who is presenting with 2 weeks of progressive intermittent chest pain. He reports the chest pain is left-sided and squeezing in nature, began 2 weeks ago and improves with nitro. Over the last 2 weeks, it has been getting worse and progressed to the point where today it was associated with shortness of breath and nausea as well as tingling in both of his hands. On the morning of presentation, he took 3 nitroglycerin tablets with improvement after each use , but then recurrence of the pain over time. Given the progressive nature of his symptoms with more frequent nitro dosing as well as new symptoms of shortness of breath and nausea, the patient decided to present to the emergency room for further care. PAST MEDICAL HISTORY: 1. Coronary artery disease with first stent placement in 2012, repeat cath in 2013 with occluded stent to RCA, status post re-stenting in 2014. The patient had 3 cardiac catheterizations and it was noted he had focal in-stent restenosis and placement of another stent was unsuccessful. The patient was referred to [facility] for atherectomy and stent in March of 2015. By September 2015, he had another cardiac cath, which showed restenosis of the RCA and another repeated high pressure balloon dilatations with another stent. The patient also had a cardiac catheterization in March of [address] Bernal, which showed borderline FFR value that did not meet criteria for intervention at that time. 2. Hypertension. 3. Gastric sleeve performed in 2016 with subsequent resolution of the patient' s diabetes and YARELY. No longer uses CPAP. HOME MEDICATIONS: 1. Aspirin 81 mg daily. 2. Ticagrelor 60 mg twice a day. 3. Atorvastatin 80 mg daily. 4. Metoprolol tartrate 25 mg twice a day. 5. Amlodipine 5 mg daily. 6. Lisinopril/hydrochlorothiazide 20/25 one tablet daily. 7. Cyclobenzaprine 10 mg nightly. 8. Multivitamin 1 tablet daily. 9. Nitroglycerin tab 0.4 mg sublingual every 5 minutes as needed for chest pain. ALLERGIES: No known drug allergies. FAMILY HISTORY: The patient's sister from [place] at age of 33. Father of [place] at 60. Bother had multiple stents at age 43. SOCIAL HISTORY: The patient lives with his significant other, Flora, who is also his healthcare proxy. The patient is an RN at [employer]. The patient reports he quit tobacco in 2011 and states before that he intermittently used tobacco cigarettes, but also chewing tobacco. Of note though he has smoked a few cigarettes this year in 2019. He also reports drinking approximately 20 cocktails over the 2 days of the weekend. He denies recreational drug use. PHYSICAL EXAMINATION GENERAL: He is a well-appearing man, in no acute distress, who is alert and interactive, very pleasant. VITAL SIGNS: Afebrile, heart rate 60s, blood pressure 147/87, respiratory rate 18, oxygen saturation 99% on room air. HEENT: With sclerae anicteric. Pupils equal, round, and reactive to light. Moist mucous membranes. OP clear. NECK: Supple. No JVD. LUNGS: Clear to auscultation bilaterally. HEART: Regular rate and rhythm. No murmurs, gallops, or rubs. ABDOMEN: Soft, nontender, nondistended. EXTREMITIES: Warm and well perfused without evidence of edema. NEURO: Speech is clear. CN II through XII intact. No focal deficits. SKIN: Warm and dry. LYMPH NODES: Rubbery, mobile supraclavicular lymph node on the left. DIAGNOSTIC STUDIES/LAB DATA: CBC, BMP and INR unremarkable. LFTs notable for bilirubin total 1.7, which is the patient's baseline. Troponins negative x2. EKG: Normal sinus rhythm with rate 73, new T-wave inversion in III. Chest x-ray without evidence of active cardiopulmonary disease. ASSESSMENT AND PLAN: Mr. Nick is a 54-year-old man with coronary artery disease, status post multiple stents; history of diabetes and obstructive sleep apnea, which resolved after gastric sleeve; and hypertension, who is presenting with intermittent progressive chest pain, only relieved with nitroglycerin. 1. Chest pain. The patient's symptoms are concerning for unstable angina. He is very high risk given multiple stents in the past, family history, history of diabetes, dyslipidemia, and tobacco use. He will be admitted to observation and placed on telemetry. Cardiology has been consulted and we will follow up their recommendations. Echo has also been ordered. Dr. Bernal of Interventional Cardiology, who performed the patient's catheterization earlier this year, will also be contacted, as the patient may need to go for catheterization again. Also continue the patient's home aspirin, ticagrelor, statin, and nitroglycerin p.r.n. 2. Hypertension. Continue home lisinopril 20, hydrochlorothiazide 25, amlodipine 5, and also metoprolol tartrate 25 mg twice a day. 3. History of diabetes. Check A1c in the morning. 4. DVT prophylaxis: Start heparin subcu. 5. Code status: Full code. TIME SPENT: Approximately 60 minutes was spent on admission of this patient, more than half of which was spent at bedside for interview and exam. [id number]/[facility] #: [id number] ORESTES
[2019-09-27] MEDS ORDERED: Cyclobenzaprine TAB* 10 MG PO SCH (18:00)
[2019-09-27] MEDS ORDERED: amLODIPine TAB* 5 MG PO SCH (21:00)
[2019-09-27] MEDS: Metoprolol Tartrate TAB* 25 MG PO SCH (21:07)
[2019-09-27] MEDS: TICAGRELOR 60 MG PO SCH (21:07)
--- NOTE | 2019-09-27 21:07 | CONS ---
CC: Mark Fournier NP; Dr. Owen Phelps * CARDIOLOGY CONSULT: DATE OF CONSULT: 09/27/19 CHIEF COMPLAINT: Chest pain. REASON FOR CONSULT: Chest pain and known coronary disease. HISTORY OF PRESENT ILLNESS: Mr. Nick is a 54-year-old gentleman with known atherosclerotic heart disease, history of stenting, atherectomy in the past. The patient states that for about a month, he has been having chest pain that would clear with nitroglycerin. He does not seek assistance with Dr. Phelps because it would clear. Today, he was at work, developed upper substernal chest discomfort that was quite severe and did not clear with nitroglycerin and is ongoing despite management in the hospital. He also had tingling in his arms , mild nausea prior to taking nitro. His blood pressure was high at the time of my exam. He denies any missed medications that he knew, [id number] medications, or substances. He admits to binge drinking about every 3 to 4 weekends and will have 21 drinks at a time, but the last time he did that was 3 weeks ago. He denies nonsteroidal use. He says he does eat a high salt food. He had sloppy joes last night but apparently they did not use any mix that would have had high salt; they are homemade. PAST MEDICAL HISTORY: 1. Coronary artery disease. 2. Obstructive sleep apnea. 3. Dyslipidemia. 4. Obesity. 5. Alcohol abuse. 6. Diabetes that resolved with gastric bypass. PAST SURGICAL HISTORY: Gastric bypass surgery in 2017. MEDICATIONS: Outpatient medications based on ER records include: 1. Amlodipine 5 mg a day. 2. Brilinta 60 mg b.i.d. 3. Nitroglycerin p.r.n. 4. Multi-Jose. 5. Metoprolol tartrate 25 mg b.i.d. 6. Lisinopril and hydrochlorothiazide 1 tab daily. 7. Flexeril 10 mg a day. 8. Lipitor 80 mg a day. 9. Aspirin 81 mg a day. ALLERGIES: He has no known drug allergies. FAMILY HISTORY: Positive for extensive early atherosclerotic heart disease. He had a sister who at age 33 of cardiac-related issues. His father in his 50s from an [place]. He has brother who had 2 stents in his 40s. SOCIAL HISTORY: The patient is a nurse, works at [employer]. Drinks up to 21 beers on a weekend. Rare tobacco use, maybe 2 cigarettes a year. REVIEW OF SYSTEMS: Negative for recent orthopnea or PND. He denies salt intake , although he had sloppy joes as above. He states he is taking all his medications on regular basis. Denies recent travel, change in habits. No recent fevers, chills, sweats, coughing, change in bowel or bladder habits. No diarrhea, constipation. No recent leg swelling. All other 14-point review of systems was negative. The patient denies claudication symptoms or any neurological changes recently. PHYSICAL EXAM: The patient is 5 feet 8 inches, weighs 226 pounds with a BMI of 34.4. Vital Signs: On arrival to the emergency room, 157/88, pulse is 75, afebrile, oxygen saturation is 100% on room air, and maximum blood pressure in the emergency room was 192/99, but improved. General Appearance: Somewhat older middle-aged gentleman appears overall overweight, smiling, complaining of chest pain. Psychologically, pleasant and cooperative. Neurologically, awake, alert, oriented to person, place, and time. Grossly normal sensory and motor function in the upper and lower extremities on exam at bedside. Skin: Warm, dry. No cyanosis or rashes. HEENT: Pupils are equal and round. Mucous membranes moist. Neck: Thick from obesity but no appreciable increase in JVP. Good carotid pulses without bruits. Breath sounds clear with good effort. No wheezes, rales, or rhonchi. Coronary: S1, S2 regular, without murmurs appreciated. Abdomen: Overweight, active bowel sounds. No epigastric discomfort reproduced. No hepatospleno-megaly. Lower Extremities: The right lower extremity was free of edema, warm with 1 to 2+ posterior tibial pulses. Left lower extremity is cool, I could not palpate pulses on that side. DIAGNOSTIC STUDIES/LAB DATA: The patient's 12-lead ECG done today showed normal sinus rhythm, 73 beats a minute, QRS axis of +15 with normal AV and IV conduction times, Q in lead III and aVF consistent with old inferior wall GA and inverted and flattened T waves in these leads. No evidence of acute ST changes, coving in V2 and V3 is a little abnormal when compared with his EKG of 01/03/19, inferior Qs, old inverted T waves in the inferior lead, in lead III more pronounced and the abnormal coving in the precordial leads is new. The most recent cardiac catheterization was 01/30/19, combination with Dr. Phelps and Dr. Bernal: Dominant right coronary artery calcified with modification of the mid right coronary artery stent, distal right coronary artery 50% occlusion, stent to the PDA was open and patent, 50% occlusion in the mid to proximal right coronary artery moderately calcified, and 40% occlusion in the mid right coronary artery just prior to the stent. Left main, no stenosis. LAD with stents open and patent. Left circumflex with no stenosis. FFR performed by Dr. Bernal to the right coronary artery was described as borderline (0.81), medical management was recommended. White count 5, hematocrit 15.5, hematocrit 45, platelets 179. INR 0.97. Sodium 140, potassium 3.8, chloride 105, bicarb 29, BUN of 11, creatinine 0.87, glucose 122, bili 1.7. AST of 24, ALT 32. Troponin #1 of 0.00, troponin #2 of 0.00, troponin #3 0.00. The most recent lipids available to me are 09/20/19 showing total cholesterol 149, triglycerides 356, LDL cholesterol 45, HDL cholesterol 33. The most recent echo in the inpatient system of 2013 showing ejection fraction 45% to 50% with left ventricular hypertrophy, abnormal diastolic filling, normal right ventricular systolic function, hypokinesis of the inferior wall, good valve function. Chest x-ray done today showed no acute pulmonary artery disease. IMPRESSION: In summary, Mr. Nick is a 54-year-old gentleman with known coronary artery disease of multivessel, on medical management for multiple moderate lesions in the right coronary artery, patent stents in the left anterior descending artery. The patient is presenting with ongoing chest pain refractory to nitroglycerin. He has been intermittently hypertensive in the ER with negative troponins. Although the patient is high-risk patient for coronary disease, his negative troponins with hours of chest pain speaks to a potential for noncardiac etiology. I do recommend he undergo an exercise stress test on his usual medications to ensure there is no inducible ischemia. With his history of gastric bypass surgery, I would consider potential gastrointestinal possibilities related to the gastric bypass especially with his history of binge drinking and sloppy joes the night before can certainly lead to reflux or problems related to gastric emptying outpatient evaluation with the gastric bypass team might be helpful. For the patient's mixed dyslipidemia, he may benefit from addition of Vascepa ( prescription fish oil) in addition to better diet. The patient's blood pressure was quite high. He thinks it is related to anxiety in the ED, but hypertension to chest pain or could be small vessel disease and vascular reserve issues, optimization of antihypertensive regimen may be useful as well. Consider increasing Norvasc as this has the added benefit of helping with esophageal spasm in some patients as well. Overall compliance and improved lifestyle would be a great benefit to this patient's heart health and general health and symptomatology. I personally counseled him about his lifestyle choices, dietary choices including his binge drinking. Additional recommendations will be made pending the result of his stress test and clinical course. Thank you for allowing me to assist in this nice gentleman's care. [id number]/[facility] #: [id number] ORESTES
[2019-09-28 05:03] LABS: HDL Cholesterol 29.6 mg/dL
[2019-09-28 08:39] VITALS: BP 142/89
[2019-09-28] MEDS: TICAGRELOR 60 MG PO SCH (08:58)
[2019-09-28] MEDS ORDERED: Lisinopril TAB* 10 MG PO SCH (09:00)
[2019-09-28] MEDS ORDERED: Aspirin 81 mg CHEW TAB* 81 MG TAB.CHEW PO SCH (09:00)
[2019-09-28] MEDS ORDERED: Multivitamins/Minerals TAB PO SCH (09:00)
[2019-09-28] MEDS ORDERED: Hydrochlorothiazide TAB* 25 MG PO SCH (09:00)
[2019-09-28] MEDS ORDERED: Atorvastatin* 80 MG TAB PO SCH (09:00)
[2019-09-28] MEDS: Metoprolol Tartrate TAB* 25 MG PO SCH (12:43)
[2019-09-28] MEDS: Enoxaparin(*) 40 MG/0.4 ML SYR SUBCUT SCH (14:26)
--- NOTE | 2019-09-28 20:40 | DS ---
CC: Mark Fournier NP; Dr. Owen Phelps * DISCHARGE SUMMARY: DATE OF ADMISSION: 09/27/19 DATE OF DISCHARGE: 09/28/19 PRIMARY CARE PROVIDER: Mark Fournier NP COAL CRUSHER OPERATOR: Dr. Owen Phelps. PRIMARY DIAGNOSES: 1. Coronary artery disease status post multiple stents placements. 2. Hypertension. 3. Alcohol use disorder. SECONDARY DIAGNOSIS: Obesity status post gastric sleeve in 2017 with subsequent resolution of the patient's diabetes and possibly also obstructive sleep apnea. CONSULTS: Dr. Bianca Gomez of Cardiology. PROCEDURES: Nuclear medicine stress test on 09/22/19. DISCHARGE MEDICATIONS: 1. Aspirin 81 mg daily. 2. Ticagrelor 60 mg twice a day. 3. Atorvastatin 80 mg daily. 4. Metoprolol succinate 100 mg daily. 5. Lisinopril/hydrochlorothiazide 20/25 one tablet daily. 6. Amlodipine 5 mg daily. 7. Nitroglycerin 0.4 sublingual every 5 minutes as needed for chest pain. 8. Multivitamin 1 tablet daily. 9. Cyclobenzaprine 10 mg at night as needed for muscle spasm. HISTORY OF PRESENT ILLNESS: Mr. Nick is a 54-year-old man with coronary artery disease status post multiple stents, sleeve gastrectomy in 2017 with resultant resolution in diabetes and YARELY, and hypertension, who is presenting with 2 weeks of progressive intermittent chest pain. He reports chest pain is left-sided and squeezing in nature. It began approximately 2 weeks ago and has been coming on intermittently over the last 2 weeks. The pain is only improved with nitroglycerin. Over the last 2 weeks, it has progressed to the point where on day of presentation it became associated with shortness of breath and nausea as well as tingling in both of his hands. On the morning of presentation, he took 3 nitroglycerin tablets with improvement in his symptoms after each dose, but then experienced recurrence of pain as time passed. Given the progressive nature of his symptoms and more frequent nitro dosing, the patient decided to present to the emergency room. HOSPITAL COURSE: In the emergency room, the patient's vital signs were remarkable for blood pressure 157/88. His troponins were resulting negative. His EKG showed normal sinus rhythm with 73 beats per minute with a Q wave in lead 3 and aVF, consistent with old inferior wall VT, and also inverted and flattened T waves. The patient had no acute ST changes. As the patient had a cardiac catheterization in January with significant nonobstructive coronary artery disease and FFR described as borderline, Cardiology was consulted in case the patient should proceed to cath rather than stress test. Cardiology consult recommended nuclear medicine exercise stress test the next morning. Cardiology also recommended considering possibility that patient's symptoms could be gastric in origin; however, the patient denies association with food or worsening when lying flat. He states his pain is only worsened by exertion and only improved by nitroglycerin. By next morning, the patient underwent nuclear medicine stress test with EKG tracings unremarkable and radiology read of nuclear scan with impression without evidence for infarct or ischemia, with assessment low risk. The patient' s chest pain did not recur throughout hospitalization and he had no significant events on telemetry. The patient was educated extensively on lifestyle factors that he should modify in order to reduce his risk of further coronary artery disease, including eating a healthier diet to reduce weight as well as adhering to an exercise regimen. The patient also reports that he has smoked a few cigarettes this year and he tends to drink approximately 20 drinks over the course of the weekend, so he is encouraged to avoid alcohol and tobacco. On day of discharge, a complete 10-point review of systems was performed. The patient denied all symptoms. PHYSICAL EXAMINATION: Afebrile, heart rate 65, blood pressure 142/89, respiratory rate 14, oxygen saturation 98% on room air. General: He is a well- appearing man in no acute distress. He is alert and interactive and in good spirits. Neck: No JVD. Supple. HEENT: OP clear. Moist mucous membranes. Lungs: Clear to auscultation bilaterally. Heart: Regular rate and rhythm. No murmurs, gallops, or rubs. Abdomen: Soft, nontender, nondistended. Extremities: Warm and well- perfused without evidence of edema. Psych: Normal affect. Neuro: A and O x3. No focal deficits. DIAGNOSTIC STUDIES/LAB DATA: CBC, BMP, and LFTs unremarkable. Troponins negative x5. Hemoglobin A1c 5.7. LDL 45, HDL 29.6, triglycerides 172. Chest x-ray without evidence for active cardiopulmonary disease. Nuclear medicine scan: No evidence for infarct or ischemia with assessment low risk. Transthoracic echocardiogram: LV with mild concentric hypertrophy with systolic function normal, estimated EF 50% to 60%, wall motion normal without regional motion abnormalities, LV diastolic function parameters are normal, RV mildly to moderately dilated with septal flattening of the interventricular septum consistent with RV volume or pressure overload. LA at the upper limits of normal. RA mildly dilated. Compared with prior echocardiogram in April 2014 , no longer with inferior wall motion abnormality and ejection fraction has improved from 45% to 50%. DISCHARGE PLAN: The patient should follow up closely with his primary care physician as well as Dr. Owen Phelps of Cardiology. His metoprolol succinate was increased to 100 mg daily from metoprolol tartrate 25 mg twice a day given concern for adherence and also hoped that increase in beta-karl will improve anginal symptoms. The patient was educated to aggressively modify lifestyle factors that can increase risk of coronary artery disease. He was asked to abstain completely from tobacco and significantly reduce his alcohol intake, as well as to eat a healthy diet and start on exercise program for overall cardiovascular health and reduction of weight. Him and partner were educated on return precautions, which include but are not limited to worsening of chest pain. The patient should eat a health diet, low on processed foods, and high in potassium rich foods. He should limit his alcohol intake to no more than 2 drinks per day and he should resume activity as tolerated and he was encouraged to adhere to an exercise regimen. DISPOSITION: Home. CONDITION: Good. TIME SPENT: Approximately 60 minutes was spent on discharge of this patient, more than of which was spent with care coordination at bedside for interview and exam. [id number]/[facility] #: [id number] MTDD
--- NOTE | 2019-10-16 14:08 | HP ---
HISTORY AND PHYSICAL: ADDENDUM: A 10-point review of systems was performed and pertinent positives and negatives are liste d in the HPI. [id number]/[facility] #: [id number]
== END 2019-09-28 15:41 | disposition home or self-care (01) ==
LOC: ED 08:09 → MEDTELE 12:51 → INTOOBSV 12:51
PROVIDERS: ADMIT Internal Medicine; ATTEND Internal Medicine
DX: I25.10 Atherosclerotic heart disease of native coronary artery without angina pectoris (principal); Z95.5 Presence of coronary angioplasty implant and graft; I10 Essential (primary) hypertension; F10.10 Alcohol abuse, uncomplicated; R07.9 Chest pain, unspecified; Z98.84 Bariatric surgery status; Z79.82 Long term (current) use of aspirin; Z79.899 Other long term (current) drug therapy; Z87.891 Personal history of nicotine dependence; R94.31 Abnormal electrocardiogram [ECG] [EKG]; I25.2 Old myocardial infarction; E78.5 Hyperlipidemia, unspecified; Z79.01 Long term (current) use of anticoagulants
CPT/HCPCS: 36415; 71046; 78452; 80053; 80061; 83036; 84484; 85025; 85610; 93005; 93017; 93306; 96372; 99284; A9270-GY; A9502; G0378; J1650

== ENCOUNTER 2023-01-20 07:30 | Inpatient (IN) ==
[2023-02-02] MEDS ORDERED: Lactated Ringers 1000 ml BAG 1,000 ML IV SCH (06:00)
[2023-02-02] MEDS ORDERED: Buffered Lidocaine 1% SYRIN 1 ml INTRADERM ONE (06:00)
[2023-02-02] MEDS ORDERED: Prochlorperazine 5 mg/ml 2 ml VIAL (10 mg) IV PRN (07:30)
[2023-02-02] MEDS ORDERED: Acetaminophen IV 1 GM/100ML 1,000 MG/100 ML BAG IV ONE ×2 (07:30→15:19)
[2023-02-02] MEDS ORDERED: Naloxone 0.4 mg VIAL 0.4 mg/ml 1 ml VIAL IV PRN (07:30)
[2023-02-02] MEDS ORDERED: ceFAZolin *3* GM in NS PREMIX 3 GM/100 ML BAG IV ONE (08:14)
[2023-02-02] MEDS ORDERED: Heparin 5000 UNITS/ML 1 mL VIAL ONE (08:14)
[2023-02-02] MEDS ORDERED: Scopolamine 1 mg/72hr PATCH ONE (08:14)
[2023-02-02] MEDS ORDERED: Rocuronium 50 mg VIAL 10 mg/ml 5 ml VIAL (50 mg) ONE ×3 (08:51→12:35)
[2023-02-02] MEDS ORDERED: Dexamethasone IV 4 MG/ML VIAL 1 ml VIAL ONE (08:51)
[2023-02-02] MEDS ORDERED: Propofol 10 MG/ML 20 ML BTL ONE (08:51)
[2023-02-02] MEDS ORDERED: Metoclopramide 5 MG/ML VIAL (10 mg) ONE (08:51)
[2023-02-02] MEDS ORDERED: Ondansetron 4 mg VIAL 2 MG/ML 2 ml VIAL ONE (08:51)
[2023-02-02] MEDS ORDERED: fentaNYL 250 mcg/5 ml 50 MCG/ML 5 ml VIAL (250 MCG) ONE (08:51)
[2023-02-02] MEDS ORDERED: Bupivacaine 0.25% EPI 200,000 30 ML SDV ONE (09:30)
[2023-02-02] MEDS ORDERED: Methylene Blue 0.5 % 50 MG/10 ML AMP IV ONE ×2 (09:37→11:46)
[2023-02-02] MEDS ORDERED: Phenylephrine 40 mcg/mL 10mL (400mcg) SYRINGE ONE (13:11)
[2023-02-02] MEDS ORDERED: Ondansetron 4 mg VIAL 2 MG/ML 2 ml VIAL IV PRN (13:57)
[2023-02-02] MEDS ORDERED: HYDROcodone/ACET. 7.5/325 LIQ 15 ML UDC PO PRN (13:57)
[2023-02-02] MEDS ORDERED: fentaNYL 100 mcg/2 ml 50 MCG/ML VIAL ONE ×2 (14:06→15:19)
[2023-02-02] MEDS: fentaNYL 100 mcg/2 ml 50 MCG/ML VIAL IV PRN ×4 (14:10→15:22)
[2023-02-02] MEDS: Lactated Ringers 1000 ml BAG 1,000 ML IV SCH ×2 (15:57→22:45)
[2023-02-02] MEDS: HYDROmorphone 0.5 MG/0.5 ML SYRINGE IV SLOW PU PRN (20:54)
[2023-02-02] MEDS: Heparin 5000 UNITS/ML 1 mL VIAL SUBCUT SCH (22:01)
[2023-02-03] MEDS: HYDROmorphone 0.5 MG/0.5 ML SYRINGE IV SLOW PU PRN ×2 (02:25→05:36)
[2023-02-03] MEDS: Heparin 5000 UNITS/ML 1 mL VIAL SUBCUT SCH ×2 (05:30→14:11)
[2023-02-03] MEDS: Lactated Ringers 1000 ml BAG 1,000 ML IV SCH (05:31)
[2023-02-03] MEDS ORDERED: Influenza vaccine *QUAD* *2022-23* 0.5 ML SYRINGE IM ONE (09:00)
[2023-02-03 11:03] VITALS: BP 113/70
[2023-02-03] MEDS ORDERED: D5W 1/2 NS KCl 20 meq 1000 ml 1,000 ML IV SCH (14:00)
== END 2023-02-03 15:42 | disposition home or self-care (01) | DRG 222 ==
LOC: AA 02-02 07:48 → SSU 02-02 15:34
PROVIDERS: ADMIT Surgery; ATTEND Surgery